=== PATIENT | female | born 1995 | race Caucasian/White ===

== ENCOUNTER 2021-01-25 06:13 | Inpatient (IN) ==
[2021-01-25] MEDS ORDERED: SODIUM CHLORIDE 0.9% 1000ML 1,000 ML IV ONE (06:43)
--- NOTE | 2021-01-25 06:50 | Emergency Department Note ---
History of Present Illness General Chief complaint: Mental Health Evaluation Stated complaint: SHAKY,DIZZY,LIGHT HEADED Time Seen by Provider: 01/25/21 06:30 Source: patient and family ( who is at the bedside) Mode of arrival: ambulatory Limitations: no limitations History of Present Illness Maximum Pain Intensity: 0 This patient comes in after taking an intentional overdose. She says she took 2 overdoses 1 at 1 PM and 1 at 8 PM yesterday. She says she took the Lexapro and Prozac which were both prescribed to her. She says she took approximately a gram total and at 1 PM took 300 mg and a 30 she took the rest. She denies any coingestions, specifically denies aspirin or Tylenol or drugs or alcohol. She did not vomit. She said " I just do not want to live anymore". And she admits that it was a suicidal attempt. She is try to take sleeping pills in the past she tells me as well. She has had the Covid vaccine. No recent illness. Specifically no fever chills cough or shortness of breath. She says she is slightly dizzy and lightheaded. No chest pain. No nausea. Denies . Home Medications Medication Instructions Recorded Confirmed Type escitalopram oxalate 20 mg tablet 20 mg PO DAILY 01/25/21 01/25/21 History (Lexapro) Past Med/Surg History Social History Smoking Status: Never smoker Preferred Language: Kazakh Feels Safe at Home: Yes Immunizations: Past medical historydepression. She gets her medications online from [employer]. Denies diabetes Social historyshe works at [employer]. She is and lives locally in [facility]. Review of Systems A total of 10 systems reviewed and were otherwise negative Physical Exam Vital Signs Vital Signs - 24 hr 01/25/21 06:17 01/25/21 07:30 01/25/21 08:00 Temperature 36.7 C Temperature Source Temporal Artery Scan Pulse Rate 114 H 77 79 Respiratory Rate 16 17 19 Blood Pressure 121/87 Blood Pressure Mean 98 Pulse Oximetry 98 Oxygen Delivery Method Room Air Sepsis Recent Fever Within 48 Hours No Sepsis New/Unexplained Change in Mental Status No Sepsis Action Taken by Nursing No Action Required 01/25/21 08:30 01/25/21 09:00 01/25/21 09:30 Temperature Temperature Source Pulse Rate 77 77 75 Respiratory Rate 18 18 21 Blood Pressure Blood Pressure Mean Pulse Oximetry Oxygen Delivery Method Sepsis Recent Fever Within 48 Hours Sepsis New/Unexplained Change in Mental Status Sepsis Action Taken by Nursing 01/25/21 10:03 01/25/21 10:30 01/25/21 11:00 Temperature Temperature Source Pulse Rate 107 H 79 81 Respiratory Rate 18 21 21 Blood Pressure Blood Pressure Mean Pulse Oximetry Oxygen Delivery Method Sepsis Recent Fever Within 48 Hours Sepsis New/Unexplained Change in Mental Status Sepsis Action Taken by Nursing 01/25/21 11:30 01/25/21 12:00 01/25/21 12:30 Temperature Temperature Source Pulse Rate 101 H 79 80 Respiratory Rate 14 19 22 Blood Pressure Blood Pressure Mean Pulse Oximetry Oxygen Delivery Method Sepsis Recent Fever Within 48 Hours Sepsis New/Unexplained Change in Mental Status Sepsis Action Taken by Nursing 01/25/21 13:00 01/25/21 13:30 01/25/21 14:00 Temperature Temperature Source Pulse Rate 74 78 79 Respiratory Rate 19 17 15 Blood Pressure 118/82 Blood Pressure Mean 94 Pulse Oximetry 98 97 97 Oxygen Delivery Method Sepsis Recent Fever Within 48 Hours Sepsis New/Unexplained Change in Mental Status Sepsis Action Taken by Nursing 01/25/21 14:30 Temperature Temperature Source Pulse Rate 69 Respiratory Rate 18 Blood Pressure Blood Pressure Mean Pulse Oximetry Oxygen Delivery Method Sepsis Recent Fever Within 48 Hours Sepsis New/Unexplained Change in Mental Status Sepsis Action Taken by Nursing General: Well developed well nourished young female who appears in no acute distress, breathing comfortably on room air. Normal speech HEENT: Normal cephalic atraumatic. Pupils are equal round and reactive to light. Extraocular movements are intact. Oropharynx is pink with moist mucous membranes. No swelling of the mouth lips or tongue. Neck: Supple with a midline trachea. No meningeal signs or stiffness, no JVD or bruits. No Stridor. Chest: Clear to auscultation bilaterally. No wheezes or rhonchi. No increased work of breathing. Heart: Regular rate and rhythm without murmurs or gallops. Abdomen: Soft nontender, nondistended without rebound guarding or rigidity. Extremities: No cyanosis clubbing or edema. No calf tenderness or assymetry Spine/Back. Non tender to palpation. No CVA tenderness Skin: Good turgor without rashes. Neurologic exam: Cranial nerves two through 12 are intact. Motor and sensation are intact and symmetrical throughout. Psych: Admits to suicidal ideations. She has normal affect and thought process Course Administered Medications Discontinued Medications Sodium Chloride (Nss 1000ml) 1,000 mls @ 999 mls/hr IV .Q1H1M ONE Stop: 01/25/21 07:43 Last Infusion: 01/25/21 08:17 Dose: 0 mls/hr Documented by: [id number] Admin: 01/25/21 07:14 Dose: 999 mls/hr Documented by: [id number] Magnesium Sulfate/Dextrose (Magnesium Sulfate / D5w) 1 gm in 100 mls @ 100 mls/hr IV NOW STA Stop: 01/25/21 08:00 Last Infusion: 01/25/21 08:17 Dose: 0 mls/hr Documented by: [id number] Admin: 01/25/21 07:18 Dose: 100 mls/hr Documented by: [id number] Potassium Chloride (Potassium Chloride 10 Meq Tabcr) 40 meq PO NOW STA Stop: 01/25/21 08:10 Last Admin: 01/25/21 08:17 Dose: 40 meq Documented by: [id number] Medical Decision Making Differential Diagnosis Depression, anxiety, overdose, toxicologic, metabolic, infectious, covid Medical Records Attestation: I reviewed the patient's medical records. Home Medications Current Medication List: was personally reviewed by me Laboratory Data Attestation: I reviewed the patient's lab results. Result diagrams: 01/25/21 07:07 01/25/21 07:07 Lab Results 01/25/21 01/25/21 01/25/21 Range/Units 06:29 06:29 07:07 WBC 6.21 (4.8-10.8) K/uL RBC 3.97 L (4.2-5.4) M/uL Hgb 12.1 (12.0-16.0) g/dL Hct 35.5 L (37-47) % MCV 89.4 (80-100) fL MCH 30.5 (25-34) pg MCHC 34.1 (32-36) g/dL RDW Std Deviation 40.5 (36.4-46.3) fL RDW Coeff of Vandana 12.5 (11.5-14.5) % Plt Count 240 (130-400) K/uL MPV 9.2 (7.4-10.4) fL Immature Gran % (Auto) 0.2 % Neut % (Auto) 66.1 % Lymph % (Auto) 23.0 % Graves % (Auto) 9.3 % Eos % (Auto) 1.1 % Baso % (Auto) 0.3 % Neut # (Auto) 4.10 (1.4-6.5) K/uL Lymph # (Auto) 1.43 (1.2-3.4) K/uL Graves # (Auto) 0.58 (0.11-0.59) K/uL Eos # (Auto) 0.07 (0-0.5) K/uL Baso # (Auto) 0.02 (0-0.2) K/uL Immature Gran # (Auto) 0.01 (0.00-0.02) K/uL PT (9.0-12.0) Seconds INR (0.9-1.1) APTT (21.0-31.0) Seconds PTT Ratio Sodium (136-145) mmol/L Potassium (3.5-5.1) mmol/L Chloride (98-107) mmol/L Carbon Dioxide (21-32) mmol/L Anion Gap (3-11) BUN (7-18) mg/dl Creatinine (0.6-1.2) mg/dl Est Cr Clr Drug Dosing ml/min Est GFR ( Amer) ml/min Est GFR (Non-Af Amer) ml/min BUN/Creatinine Ratio (10-20) Glucose (70-99) mg/dl Calcium (8.5-10.1) mg/dl Magnesium (1.8-2.4) mg/dl Total Bilirubin (0.2-1) mg/dl AST (15-37) U/L ALT (12-78) U/L Alkaline Phosphatase (45-117) U/L Total Protein (6.4-8.2) gm/dl Albumin (3.4-5.0) gm/dl Globulin (2.5-4.0) gm/dl Albumin/Globulin Ratio (0.9-2) TSH (0.300-4.500) uIu/ml HCG, Qual (Negative) Urine Color Yellow Urine Appearance Clear (Clear) Urine pH 6.5 (4.5-7.5) Ur Specific [place] 1.030 (1.000-1.030) Urine Protein Negative (Negative) Urine Glucose (UA) Negative (Negative) Urine Ketones Negative (Negative) Urine Blood Negative (Negative) Urine Nitrite Negative (Negative) Urine Bilirubin Negative (Negative) Urine Urobilinogen Negative (Negative) Ur Leukocyte Esterase Negative (Negative) Salicylates (2.8-20) mg/dl Urine Opiates Screen Neg (Neg) Ur Methadone, Qual Neg (Neg) Acetaminophen (10-30) ug/ml Urine Barbiturates Neg (Neg) Ur Phencyclidine (PCP) Neg (Neg) U Amphetamin/Meth Scrn Neg (Neg) MDMA (Ecstasy) Screen Neg (Neg) U Benzodiazepines Scrn Neg (Neg) Ur Cocaine Metabolite Neg (Neg) U Marijuana (THC) Screen Neg (Neg) Ethyl Alcohol mg/dL (0-3) mg/dl COVID-19 Eval Order SARS-CoV-2 (PCR) (Negative) 01/25/21 01/25/21 01/25/21 Range/Units 07:07 07:07 07:07 WBC (4.8-10.8) K/uL RBC (4.2-5.4) M/uL Hgb (12.0-16.0) g/dL Hct (37-47) % MCV (80-100) fL MCH (25-34) pg MCHC (32-36) g/dL RDW Std Deviation (36.4-46.3) fL RDW Coeff of Vandana (11.5-14.5) % Plt Count (130-400) K/uL MPV (7.4-10.4) fL Immature Gran % (Auto) % Neut % (Auto) % Lymph % (Auto) % Graves % (Auto) % Eos % (Auto) % Baso % (Auto) % Neut # (Auto) (1.4-6.5) K/uL Lymph # (Auto) (1.2-3.4) K/uL Graves # (Auto) (0.11-0.59) K/uL Eos # (Auto) (0-0.5) K/uL Baso # (Auto) (0-0.2) K/uL Immature Gran # (Auto) (0.00-0.02) K/uL PT (9.0-12.0) Seconds INR (0.9-1.1) APTT (21.0-31.0) Seconds PTT Ratio Sodium 136 (136-145) mmol/L Potassium 3.4 L (3.5-5.1) mmol/L Chloride 109 H (98-107) mmol/L Carbon Dioxide 27 (21-32) mmol/L Anion Gap 0 L (3-11) BUN 8 (7-18) mg/dl Creatinine 0.68 (0.6-1.2) mg/dl Est Cr Clr Drug Dosing 106.7 ml/min Est GFR ( Amer) 141.9 ml/min Est GFR (Non-Af Amer) 122.4 ml/min BUN/Creatinine Ratio 11.7 (10-20) Glucose 90 (70-99) mg/dl Calcium 8.4 L (8.5-10.1) mg/dl Magnesium 2.1 (1.8-2.4) mg/dl Total Bilirubin 0.6 (0.2-1) mg/dl AST 16 (15-37) U/L ALT 18 (12-78) U/L Alkaline Phosphatase 84 (45-117) U/L Total Protein 7.1 (6.4-8.2) gm/dl Albumin 3.7 (3.4-5.0) gm/dl Globulin 3.4 (2.5-4.0) gm/dl Albumin/Globulin Ratio 1.1 (0.9-2) TSH 3.780 (0.300-4.500) uIu/ml HCG, Qual (Negative) Urine Color Urine Appearance (Clear) Urine pH (4.5-7.5) Ur Specific [place] (1.000-1.030) Urine Protein (Negative) Urine Glucose (UA) (Negative) Urine Ketones (Negative) Urine Blood (Negative) Urine Nitrite (Negative) Urine Bilirubin (Negative) Urine Urobilinogen (Negative) Ur Leukocyte Esterase (Negative) Salicylates < 1.7 L (2.8-20) mg/dl Urine Opiates Screen (Neg) Ur Methadone, Qual (Neg) Acetaminophen 7 L (10-30) ug/ml Urine Barbiturates (Neg) Ur Phencyclidine (PCP) (Neg) U Amphetamin/Meth Scrn (Neg) MDMA (Ecstasy) Screen (Neg) U Benzodiazepines Scrn (Neg) Ur Cocaine Metabolite (Neg) U Marijuana (THC) Screen (Neg) Ethyl Alcohol mg/dL < 3.0 (0-3) mg/dl COVID-19 Eval Order SARS-CoV-2 (PCR) (Negative) 01/25/21 01/25/21 01/25/21 Range/Units 07:07 07:07 07:32 WBC (4.8-10.8) K/uL RBC (4.2-5.4) M/uL Hgb (12.0-16.0) g/dL Hct (37-47) % MCV (80-100) fL MCH (25-34) pg MCHC (32-36) g/dL RDW Std Deviation (36.4-46.3) fL RDW Coeff of Vandana (11.5-14.5) % Plt Count (130-400) K/uL MPV (7.4-10.4) fL Immature Gran % (Auto) % Neut % (Auto) % Lymph % (Auto) % Graves % (Auto) % Eos % (Auto) % Baso % (Auto) % Neut # (Auto) (1.4-6.5) K/uL Lymph # (Auto) (1.2-3.4) K/uL Graves # (Auto) (0.11-0.59) K/uL Eos # (Auto) (0-0.5) K/uL Baso # (Auto) (0-0.2) K/uL Immature Gran # (Auto) (0.00-0.02) K/uL PT 11.2 (9.0-12.0) Seconds INR 1.1 (0.9-1.1) APTT 27.5 (21.0-31.0) Seconds PTT Ratio 1.0 Sodium (136-145) mmol/L Potassium (3.5-5.1) mmol/L Chloride (98-107) mmol/L Carbon Dioxide (21-32) mmol/L Anion Gap (3-11) BUN (7-18) mg/dl Creatinine (0.6-1.2) mg/dl Est Cr Clr Drug Dosing ml/min Est GFR ( Amer) ml/min Est GFR (Non-Af Amer) ml/min BUN/Creatinine Ratio (10-20) Glucose (70-99) mg/dl Calcium (8.5-10.1) mg/dl Magnesium (1.8-2.4) mg/dl Total Bilirubin (0.2-1) mg/dl AST (15-37) U/L ALT (12-78) U/L Alkaline Phosphatase (45-117) U/L Total Protein (6.4-8.2) gm/dl Albumin (3.4-5.0) gm/dl Globulin (2.5-4.0) gm/dl Albumin/Globulin Ratio (0.9-2) TSH (0.300-4.500) uIu/ml HCG, Qual Negative (Negative) Urine Color Urine Appearance (Clear) Urine pH (4.5-7.5) Ur Specific [place] (1.000-1.030) Urine Protein (Negative) Urine Glucose (UA) (Negative) Urine Ketones (Negative) Urine Blood (Negative) Urine Nitrite (Negative) Urine Bilirubin (Negative) Urine Urobilinogen (Negative) Ur Leukocyte Esterase (Negative) Salicylates (2.8-20) mg/dl Urine Opiates Screen (Neg) Ur Methadone, Qual (Neg) Acetaminophen (10-30) ug/ml Urine Barbiturates (Neg) Ur Phencyclidine (PCP) (Neg) U Amphetamin/Meth Scrn (Neg) MDMA (Ecstasy) Screen (Neg) U Benzodiazepines Scrn (Neg) Ur Cocaine Metabolite (Neg) U Marijuana (THC) Screen (Neg) Ethyl Alcohol mg/dL (0-3) mg/dl COVID-19 Eval Order Covid19 at [facility] SARS-CoV-2 (PCR) (Negative) 01/25/21 Range/Units 07:32 WBC (4.8-10.8) K/uL RBC (4.2-5.4) M/uL Hgb (12.0-16.0) g/dL Hct (37-47) % MCV (80-100) fL MCH (25-34) pg MCHC (32-36) g/dL RDW Std Deviation (36.4-46.3) fL RDW Coeff of Vandana (11.5-14.5) % Plt Count (130-400) K/uL MPV (7.4-10.4) fL Immature Gran % (Auto) % Neut % (Auto) % Lymph % (Auto) % Graves % (Auto) % Eos % (Auto) % Baso % (Auto) % Neut # (Auto) (1.4-6.5) K/uL Lymph # (Auto) (1.2-3.4) K/uL Graves # (Auto) (0.11-0.59) K/uL Eos # (Auto) (0-0.5) K/uL Baso # (Auto) (0-0.2) K/uL Immature Gran # (Auto) (0.00-0.02) K/uL PT (9.0-12.0) Seconds INR (0.9-1.1) APTT (21.0-31.0) Seconds PTT Ratio Sodium (136-145) mmol/L Potassium (3.5-5.1) mmol/L Chloride (98-107) mmol/L Carbon Dioxide (21-32) mmol/L Anion Gap (3-11) BUN (7-18) mg/dl Creatinine (0.6-1.2) mg/dl Est Cr Clr Drug Dosing ml/min Est GFR ( Amer) ml/min Est GFR (Non-Af Amer) ml/min BUN/Creatinine Ratio (10-20) Glucose (70-99) mg/dl Calcium (8.5-10.1) mg/dl Magnesium (1.8-2.4) mg/dl Total Bilirubin (0.2-1) mg/dl AST (15-37) U/L ALT (12-78) U/L Alkaline Phosphatase (45-117) U/L Total Protein (6.4-8.2) gm/dl Albumin (3.4-5.0) gm/dl Globulin (2.5-4.0) gm/dl Albumin/Globulin Ratio (0.9-2) TSH (0.300-4.500) uIu/ml HCG, Qual (Negative) Urine Color Urine Appearance (Clear) Urine pH (4.5-7.5) Ur Specific [place] (1.000-1.030) Urine Protein (Negative) Urine Glucose (UA) (Negative) Urine Ketones (Negative) Urine Blood (Negative) Urine Nitrite (Negative) Urine Bilirubin (Negative) Urine Urobilinogen (Negative) Ur Leukocyte Esterase (Negative) Salicylates (2.8-20) mg/dl Urine Opiates Screen (Neg) Ur Methadone, Qual (Neg) Acetaminophen (10-30) ug/ml Urine Barbiturates (Neg) Ur Phencyclidine (PCP) (Neg) U Amphetamin/Meth Scrn (Neg) MDMA (Ecstasy) Screen (Neg) U Benzodiazepines Scrn (Neg) Ur Cocaine Metabolite (Neg) U Marijuana (THC) Screen (Neg) Ethyl Alcohol mg/dL (0-3) mg/dl COVID-19 Eval Order SARS-CoV-2 (PCR) NEGATIVE (Negative) ECG Data Attestation: I personally reviewed and interpreted this ECG as follows: Indication: + toxicologic Rate (beats per minute): 94 Rhythm: + normal sinus ECG Intervals/blocks: + Incomplete right bundle branch block and + Prolonged QT (PJn=261) ECG [place]: + Normal ECG ST segments: + Normal ST segments ECG Findings: + Other (Nonspecific T wave abnormal); no PACs or no PVCs Comparison ECG Date: no prior available Additional Comments: EKG #2normal sinus rhythm nonspecific T wave abnormality prolonged QT at 541. MDM Narrative This patient comes in as described above. She took an intentional overdose. Its been over 10 hours since her last pills. IV access was established and she was hydrated with an a IV normal saline bolus and placed on a groundwater monitoring technician. Multiple blood testing was obtained as well as urinalysis. IV access was established and she was hydrated with a IV normal saline bolus and placed on a groundwater monitoring technician. Multiple blood testing was obtained as well as urinalysis. EKG was also obtained. I did talk to Rajwinder at the [facility] who agreed with the plan and recommended that we do the work-up including the EKG and blood work and call them back later. Her EKG shows that she is no longer tachycardic as she was in triage with a rate of 94 however her QTC is mildly pr olonged at 532, given this I did order 1 g of magnesium IV. She was placed on a monitor. The patient remained stable she still says she is dizzy having arrhythmias. Her magnesium was 2.1. Potassium was low at 3.4 in which she was repleted with 40 mEq p.o. The rest of her labs look unremarkable. I did discuss the case further with Corbin at [facility] after I got the second EKG and her QTC is still prolonged at 541. We do not have a baseline for comparison. He does recommend observing her in the hospital for 24 hours and repeating EKG and magnesium level at 12 and to keep the magnesium greater than 2. Continuous cardiac monitoring: Given the patient's overdose an order was placed in EMR for continuous cardiac monitoring. The patient was noted to be in normal sinus with a rate of 80 Impression & Plan Overdose, Depression, Prolonged Q-T interval on ECG, Suicidal ideations Discharge Plan Visit Data Chief Complaint: Mental Health Evaluation Stated Complaint: SHAKY,DIZZY,LIGHT HEADED ED Provider: Wayne Sorto Discharge Problem: Overdose, Depression, Prolonged Q-T interval on ECG, Suicidal ideations Forms Stand Alone Forms: [facility] [employer], Suicide Prevention Resources Prescriptions Prescriptions: No Action escitalopram oxalate [Lexapro] 20 mg Tablet 20 mg PO DAILY RF: 0 Referrals Referrals: PCP,NO [Primary Care Provider] - Discharge Problem: Overdose Qualifiers: Encounter type: sequela Injury intent: intentional self-harm Qualified Code(s): T50.902S - Poisoning by unspecified drugs, medicaments and biological substances, intentional self-harm, sequela Depression Qualifiers: Depression Type: unspecified Qualified Code(s): F32.9 - Major depressive disorder, single episode, unspecified
[2021-01-25] MEDS ORDERED: MAGNESIUM SULFATE / D5W 1 GM/100 ML BAG IV STA (07:01)
[2021-01-25 07:15] LABS: Amphetamines+Metham, Urine Neg (Neg); Barbiturates, Urine Neg (Neg); Benzodiazepine, Urine Neg (Neg); Cocaine, Urine Neg (Neg); MDMA (Ecstacy), Urine Neg (Neg); Methadone, Urine Neg (Neg); Opiate, Urine Neg (Neg); Phencyclidine, Urine Neg (Neg)
[2021-01-25 07:17] LABS: Appearance Urine Clear (Clear); Bilirubin Urine Negative (Negative); Blood Urine Negative (Negative); Color Urine Yellow; Glucose Urine UA Negative (Negative); Ketones Urine Negative (Negative); Leukocyte Esterase Urine Negative (Negative); Nitrite Urine Negative (Negative); Protein Urine Negative (Negative); Urobilinogen Urine Negative (Negative); pH Urine 6.5 (4.5-7.5)
[2021-01-25 07:19] LABS: Basophils # (auto) 0.02 K/uL (0-0.2); Basophils % (auto) 0.3 %; Eosinophils # (auto) 0.07 K/uL (0-0.5); Eosinophils % (auto) 1.1 %; Hematocrit (blood only) 35.5 % (37-47); Hemoglobin 12.1 g/dL (12.0-16.0); Immature Granulocytes # (auto) 0.01 K/uL (0.00-0.02); Immature Granulocytes % (auto) 0.2 %; Lymphocytes # (auto) 1.43 K/uL (1.2-3.4); Mean Corpuscular Hemoglobin 30.5 pg (25-34); Mean Corpuscular Hgb Conc 34.1 g/dL (32-36); Mean Corpuscular Volume 89.4 fL (80-100); Mean Platelet Volume 9.2 fL (7.4-10.4); Monocytes # (auto) 0.58 K/uL (0.11-0.59); Monocytes % (auto) 9.3 %; Neutrophils % (auto) 66.1 %; Platelet Count 240 K/uL (130-400); RDW Coefficient of Variation 12.5 % (11.5-14.5); RDW Standard Deviation 40.5 fL (36.4-46.3); Red Blood Count 3.97 M/uL (4.2-5.4); White Blood Count 6.21 K/uL (4.8-10.8)
[2021-01-25 07:32] LABS: INR 1.1 (0.9-1.1); Partial Thromboplastin Time 27.5 Seconds (21.0-31.0); Prothrombin Time 11.2 Seconds (9.0-12.0)
[2021-01-25 07:42] LABS: Albumin Level 3.7 gm/dl (3.4-5.0); BUN Creatinine Ratio 11.7 (10-20); Calcium 8.4 mg/dl (8.5-10.1); Creatinine Clr Calc Pharmacy 106.7 ml/min; Est GFR (African American) 141.9 ml/min; Est GFR (Non-African American) 122.4 ml/min; Magnesium 2.1 mg/dl (1.8-2.4); Potassium 3.4 mmol/L (3.5-5.1)
[2021-01-25 07:46] LABS: Pregnancy Test, Serum Negative (Negative)
[2021-01-25 07:48] LABS: Acetaminophen 7 ug/ml (10-30); Salicylate < 1.7 mg/dl (2.8-20)
[2021-01-25 07:53] LABS: Albumin Globulin Ratio 1.1 (0.9-2); Bilirubin,Total 0.6 mg/dl (0.2-1); Globulin 3.4 gm/dl (2.5-4.0); Thyroid Stimulating Hormone 3.78 uIu/ml (0.300-4.500); Total Protein 7.1 gm/dl (6.4-8.2)
[2021-01-25] MEDS ORDERED: POTASSIUM CHLORIDE 10 MEQ TABCR PO STA (08:09)
--- NOTE | 2021-01-25 09:31 | History & Physical Report ---
Date of Service January 25, 2021 Assessment & Plan (1) Overdose: (2) Depression: (3) Suicidal ideations: Plan: - Admit to med surg with tele - Will need psych consultation for possible inpatient stay after cardiac monitoring for 24 hours - Tox screen is negative to illicit substances, alcohol negative - Pt admits to overdose on lexapro and prozac as per HPI - possible that this was due to recent increased dose of lexapro? Hold [employer] lexapro. - Pt does not admit to any social or circumstantial triggers during my visit. (4) Prolonged Q-T interval on ECG: Plan: - noted on ekg to have QTC of 541 also an incomplete RBBB, no arrhythmias on monitoring since being in the hospital, follow with Q12H EKGs - Follow BMP Q12h - Mag 1 g IV given in the ER, follow - Avoid QTC prolonging medications, ie consider weaning off prozac as this does have QTC prolonging adverse effects. (5) Hypokalemia: Plan: - Replaced with 40 meq po in ER, monitor bmp DVT ppx: teds, scds CODE: Full Dispo: From home, likely to remain in the hospital x2 days, CM to assist with discharge to psychiatric unit once medically cleared. History of Present Illness Primary Care Provider: NO PCP This is a 25-year-old Fe male with PMHx of depression, suicidal ideation, overdose and prolonged QTc interval on ECG. Patient reports that she was in her normal state of health yesterday and denies any triggers that preemptively caused her to want to take Lexapro and Prozac as an overdose. Admits to feeling depressed and with worsened mood recently. Reports following with online psychiatry through virtual visits at [facility]. and last saw one of their psychiatrist several months ago. She gets refills of her medications on a monthly basis. Initially she was trialed on Prozac however it made her feel dizzy so they stopped this medication. She was then transition to Lexapro 10 mg daily and at a recent visit, the dose was increased to 20 mg. She had leftover Prozac as well as Lexapro 10 mg tablets at home. In total she reports taking at 1 g of each type of medication, so possible that she took about 100 prozac tablets and 100 lexapro tablets, some at 1530 yesterday, and then the rest around 1999. She cannot confirm the exact amount of medications she had taken. Suicide attempt was done at home, and her was there but he didn't know, as he sleeps in a game room, and she sleeps in the bedroom. About 3 years ago she attempted suicide by overdosing on sleeping pills, but self-induced vomiting and did not present to the hospital. Social Hx; She enjoys her job, as she works at [employer]. to her who lives at home with her, no children, denies smoking or drinking alcohol. Pt is from [place], moved here after she her . Pt has never been incarcerated. Family Hx: She denies any family hx of psychiatric disorders that she is aware of. Surgical Hx: wisdom teeth removed Home Medications Medication Instructions Recorded Confirmed Type Lexapro 20 mg PO DAILY 01/25/21 01/25/21 History Past Med/Surg History Social History Smoking Status: Never smoker Preferred Language: Hungarian Feels Safe at Home: Yes Review of Systems Review of Systems: Constitutional: No fever, sweats or chills, + headache Eyes: No diplopia, no worsening or blurred vision ENT: normal hearing, no trouble swallowing Respiratory: No cough, sputum, dyspnea at rest or on exertion Cardiovascular: No chest pain, tightness or palpitations Abdomen: No pain, nausea, vomiting, diarrhea or constipation Musculoskeletal: No joint pain, calf pain, swelling Neurologic: No weakness, numbness/tingling, or balance problems Psychiatric: + depression, + suicidal ideation, denies homicidal ideation Skin: No rash or itch Physical Exam Physical Exam: General: awake, alert, no apparent distress, + thin Head: Normocephalic, atraumatic ENT: PERRL, EOMI, no pharyngeal exudate, mucous membranes moist Chest: Clear to auscultation, on room air, no adventitious breath sounds Cardiac: Regular rate and rhythm, no murmur, no JVD, normal peripheral pulses, good capillary refill Abdominal: NABS x 4 quadrants, soft, nondistended, nontender to palpation, no rebound or guarding Extremities: Normal inspection, no peripheral edema or erythema, calfs nontender to palpation Psych: Depressed mood, flat affect, poor eye contact Neuro: AAO x 3, strength intact bilaterally and rated 5/5, no motor deficits, speech is clear, no peripheral sensory deficits Results & Data Results & Data ([facility]) Vital Signs (Past 12 Hours) Vital Signs Temp Pulse Resp BP Pulse Ox 01/25/21 06:17 36.7 C 114 H 16 121/87 98 ECG Additional Comments: 25-JAN-2021 08:35:40 [facility]-EDSTAT ROUTINE RETRIEVAL Normal sinus rhythm Possible Left atrial enlargement Nonspecific T wave abnormality Prolonged QT Abnormal ECG When compared with ECG of 25-JAN-2021 06:46, (unconfirmed) No significant change was found 25mm/s 10mm/mV 150Hz 9.0.9 12SL 241 CAPRICE: 16 Referred by: REFERRED SELF Unconfirmed Vent. rate 81 BPM VA interval 132 ms QRS duration 90 ms QT/QTc 466/541 ms Code Status & VTE Plan Code Status Full code (1) Depression Depression Type: unspecified Qualified Code(s): F32.9 - Major depressive disorder, single episode, unspecified (2) Overdose Encounter type: sequela Injury intent: intentional self-harm Qualified Code(s): T50.902S - Poisoning by unspecified drugs, medicaments and biological substances, intentional self-harm, sequela
--- NOTE | 2021-01-25 13:01 | Electrocardiogram Report ---
Test Reason : Blood Pressure : / mmHG Vent. Rate : 094 BPM Atrial Rate : 094 BPM P-R Int : 128 ms QRS Dur : 092 ms QT Int : 426 ms P-R-T Axes : 076 040 054 degrees QTc Int : 532 ms Normal sinus rhythm Incomplete right bundle branch block Diffuse Minor Nonspecific T wave abnormality Prolonged QT Abnormal ECG No previous ECGs available Confirmed by Jose Raul Cheney ([id number]) on 01/25/2021 1:01:29 PM Referred By: REFERRED SELF Confirmed By:Jose Raul Cheney
[2021-01-25] MEDS ORDERED: ONDANSETRON INJ 2 MG/ML 2 ML VIAL IV PRN (18:29)
[2021-01-25] MEDS: SODIUM CHLORIDE 0.9% 1000ML 1,000 ML IV SCH (18:45)
[2021-01-25 20:49] LABS: BUN Creatinine Ratio 9.6 (10-20); Calcium 8.3 mg/dl (8.5-10.1); Creatinine Clr Calc Pharmacy 111.5 ml/min; Est GFR (Non-African American) 124.3 ml/min; Potassium 3.9 mmol/L (3.5-5.1)
[2021-01-26] MEDS: SODIUM CHLORIDE 0.9% 1000ML 1,000 ML IV SCH ×3 (02:10→18:30)
--- NOTE | 2021-01-26 08:51 | Electrocardiogram Report ---
Test Reason : Blood Pressure : / mmHG Vent. Rate : 079 BPM Atrial Rate : 079 BPM P-R Int : 126 ms QRS Dur : 094 ms QT Int : 416 ms P-R-T Axes : 082 038 044 degrees QTc Int : 477 ms Normal sinus rhythm Diffuse Minor Nonspecific T wave abnormality Prolonged QT Abnormal ECG When compared with ECG of 25-JAN-2021 08:35, QT has shortened Confirmed by Jose Raul Cheney ([id number]) on 01/26/2021 8:51:43 AM Referred By: REFERRED SELF Confirmed By:Jose Raul Cheney
--- NOTE | 2021-01-26 08:54 | Electrocardiogram Report ---
Test Reason : Blood Pressure : / mmHG Vent. Rate : 065 BPM Atrial Rate : 065 BPM P-R Int : 126 ms QRS Dur : 088 ms QT Int : 492 ms P-R-T Axes : 081 056 077 degrees QTc Int : 511 ms Normal sinus rhythm Diffuse Minor Nonspecific T wave abnormality Prolonged QT Abnormal ECG When compared with ECG of 25-JAN-2021 20:41, Nonspecific T wave abnormality has replaced inverted T waves in Anterior leads Confirmed by Jose Raul Cheney ([id number]) on 01/26/2021 8:54:00 AM Referred By: REFERRED SELF Confirmed By:Jose Raul Cheney
[2021-01-26 08:56] LABS: Albumin Level 3.5 gm/dl (3.4-5.0); BUN Creatinine Ratio 9.6 (10-20); Calcium 8.4 mg/dl (8.5-10.1); Creatinine Clr Calc Pharmacy 120.7 ml/min; Est GFR (African American) 147.9 ml/min; Est GFR (Non-African American) 127.6 ml/min; Hematocrit (blood only) 35.1 % (37-47); Hemoglobin 11.8 g/dL (12.0-16.0); Magnesium 2.2 mg/dl (1.8-2.4); Mean Corpuscular Hemoglobin 30.6 pg (25-34); Mean Corpuscular Hgb Conc 33.6 g/dL (32-36); Mean Corpuscular Volume 91.2 fL (80-100); Mean Platelet Volume 9.6 fL (7.4-10.4); Platelet Count 237 K/uL (130-400); RDW Coefficient of Variation 12.7 % (11.5-14.5); RDW Standard Deviation 42.4 fL (36.4-46.3); Red Blood Count 3.85 M/uL (4.2-5.4); White Blood Count 4.91 K/uL (4.8-10.8)
[2021-01-26 08:59] LABS: Bilirubin,Total 0.4 mg/dl (0.2-1); Globulin 3.4 gm/dl (2.5-4.0); Phosphorus 2.6 mg/dl (2.5-4.9); Total Protein 6.9 gm/dl (6.4-8.2)
[2021-01-26] MEDS ORDERED: ASPIRIN 81 MG ECTAB PO ONE (12:30)
[2021-01-26] MEDS: ACETAMINOPHEN 325 MG TAB PO PRN ×2 (12:46→18:30)
--- NOTE | 2021-01-26 15:32 | Psychiatric Consultation ---
Date of Consultation January 26, 2021 Impression / Recommendations Impression 25-year-old female with psychiatric history of depression anxiety who presents following a suicide attempt via overdose. Patient will require inpatient hospitalization for purposes of safety, stabilization, medication management. (1) Major depressive disorder with current active episode: Patient will require inpatient psychiatric hospitalization once medically cleared. Psych History Identifying Data 25-year-old woman with recent suicide attempt via overdose. Currently recovering on medical floors due to prolonged QTC. Chief Complaint "I don't know what came over me". History of Present Illness HPI as per psychiatric liaison "Rounded on patient to complete initial assessment. Pt. sitting up in bed alert and oriented, affect flat. Answered questions appropriately. She reports that she has a history of depression, starting in high school. Past attempt was 2 years ago of OD with no inpatient mental health treatment. Denies any family history. She is prescribed medications through [facility], along with therapy through this site. She is prescribed Lexapro 20mg, and reports that she had taken an OD of an old script of Prozac and Lexapro. She estimates 1GM of medication was taken. She reports getting 2 weeks ago to her Aris who is her support system. She describes her stressors as "society" and how messed up the world is. She is currently employed at [employer]. Denies any Drug use, with occasional alcohol use. She did sign an PORSCHE for her . She currently has no PCP. " Upon evaluation, patient endorsed the above information is accurate. Stated that her depression goes back to her high school years, and she is to be consistently sought out help on [facility] for her depression. Patient unable to cite specific triggers or sources of her depression, just states life in general. When asked what her biggest stressor was patient said "waking up tomorrow" referring to the day following her overdose. Patient unable to cite any specific events or that they were's more stressful than others. Patient cites her menstrual period as main reason for mood dysregulation. She states that since having taken the overdose and having come to the hospital she feels much better, and is denying any current suicidal ideation. Patient denies any history of physical, sexual, emotional trauma. States that she had a good childhood growing up. States that she recently moved from [place] to [place] to be with her Aris. She was initially started on Prozac medication, but then discontinued due to feeling dizzy, then restarted on Lexapro medication with an increase the dosage. Patient states that she used her leftover prescriptions to overdose. She denies any drug use. Admits to occasional alcohol use but denies problematic drinking. She denies any psychotic, manic symptoms. Denies AVH, denies paranoia Home Medications Medication Instructions Recorded Confirmed Type escitalopram oxalate 20 mg tablet 20 mg PO DAILY 01/25/21 01/25/21 History (Lexapro) Personal History Beliefs That Will Affect Care: None Patient History Social History Smoking Status: Never smoker Hx Alcohol Use: Yes Hx Substance Use: No Preferred Language: Lebanese Communication Ability: Effective Beliefs That Will Affect Care: None Current Living Situation: Spouse Other Information That Helps Us Care for You: No Feels Safe at Home: Yes Safety Concerns: Feels Safe At This Time Assistive Devices: None Physical Exam Psychiatric: Orientation: alert and oriented x 3 Apperance: appropriately dressed and appeared stated age Eye Contact: good eye contact Motor Behavior: no abnormal motor movements Speech: normal rate/rhythm/volume of speech Affect: euthymic affect Affect is discongruent with mood Mood: + depressed mood and + anxious mood Thought Process: goal directed thought process Thought Content: reality based without delusions Recent suicide attempt via overdose Homicidal Thoughts: denies homicidal thoughts Hallucinations: no auditory hallucinations and no visual hallucinations Cognition: recent memory grossly intact Estimated Intelligence: average estimated intelligence Insight: + limited insight Judgement: + poor judgement Vital Signs (Past 24 Hours): Last Vital Signs Temp 37.0 C 01/26/21 12:09 Pulse 73 01/26/21 12:09 Resp 18 01/26/21 12:09 BP 107/74 01/26/21 12:09 Pulse Ox 97 01/26/21 12:09 Review of Systems All systems reviewed & are unremarkable except as noted in HPI & below Results & Data (PSY) Medications Administered Acetaminophen (Acetaminophen 325 Mg Tab) 650 mg PO Q4H PRN PRN Reason: Moderate Pain Stop: 02/24/21 18:28 Last Admin: 01/26/21 12:46 Dose: 650 mg Documented by: [id number] Sodium Chloride (Nss 1000ml) 1,000 mls @ 125 mls/hr IV .Q8H ERICA Stop: 02/24/21 18:28 Last Admin: 01/26/21 10:03 Dose: 125 mls/hr Documented by: [id number] Infusion: 01/26/21 10:03 Dose: 125 mls/hr Documented by: [id number] Admin: 01/26/21 02:10 Dose: 125 mls/hr Documented by: [id number] Infusion: 01/26/21 02:10 Dose: 125 mls/hr Documented by: [id number] Admin: 01/25/21 18:45 Dose: 125 mls/hr Documented by: [id number] Coding Level of Care Code 24660 [facility] Intl Hosp Care Lvl 2 Diagnoses Major depressive disorder with current active episode F32.9 Time Spent (min) 40
[2021-01-26 16:51] LABS: Magnesium 1.9 mg/dl (1.8-2.4)
--- NOTE | 2021-01-26 17:00 | Electrocardiogram Report ---
Test Reason : Blood Pressure : / mmHG Vent. Rate : 070 BPM Atrial Rate : 070 BPM P-R Int : 120 ms QRS Dur : 086 ms QT Int : 484 ms P-R-T Axes : 103 125 117 degrees QTc Int : 522 ms Suspect arm lead reversal, interpretation assumes no reversal Normal sinus rhythm Right axis deviation Diffuse Nonspecific T wave abnormality Prolonged QT Abnormal ECG When compared with ECG of 26-JAN-2021 08:10, No significant change Confirmed by Jose Raul Cheney ([id number]) on 01/26/2021 5:00:26 PM Referred By: REFERRED SELF Confirmed By:Jose Raul Cheney
--- NOTE | 2021-01-26 22:32 | Hospitalist Progress Note ---
Date of Service January 26, 2021 Assessment & Plan (1) Overdose: (2) Depression: (3) Suicidal ideations: Plan: Present on admission for suicidal attempt with drug overdose Patient admitted to overdose on lexapro and prozac Tox screen is negative to illicit substances, alcohol negative Poison control was contacted recommended to follow up EKG to monitor QTC Psych on board Continue one-to-one sitter Patient will need inpatient psych treatment once medically cleared (4) Prolonged Q-T interval on ECG: Plan: Noted on ekg to have QTC of 541 also an incomplete RBBB No arrhythmias on screen stretcher Continue avoiding QTC prolongation medication Continue serial EKG (5) Hypokalemia: Plan: Potassium 4 today Continue monitor BMP DVT ppx: teds, scds CODE: Full Dispo: Will need inpatient psych therapy once medically clear Admission and Anticipated Discharge Date Admission Date: January 25, 2021 Subjective Patient was seen and examined for follow-up of QTC after suicidal attempt with drug overdose Sitting in bed with no acute distress with one-to-one sitter Patient said that she feels fine and mood stable Denies any chest pain, palpitation, dizziness, shortness of breath. Review of Systems Review of Systems: All systems reviewed & are unremarkable except as noted in Subjective Physical Exam Physical Exam: General- No acute distress Head- atraumatic Eyes- PERRL, EOMI, ENT- oropharynx clear Neck- supple, no JVD Lungs- clear to auscultation Heart- regular rhythm; no murmur Abdomen- normal bowel sounds, soft, nontender Extremities- no calf tenderness Neuro- alert, oriented x 3; PERRL, EOMI; no facial palsy; no dysarthria Skin- warm & dry Results & Data Results & Data ([facility]) Vital Signs (Past 12 Hours) Vital Signs Temp Pulse Pulse Resp BP Pulse Ox 01/26/21 18:53 36.7 C 74 18 123/82 98 01/26/21 15:28 36.8 C 75 16 113/78 99 01/26/21 12:09 37.0 C 73 18 107/74 97 (1) Overdose Encounter type: sequela Injury intent: intentional self-harm Qualified Code(s): T50.902S - Poisoning by unspecified drugs, medicaments and biological substances, intentional self-harm, sequela (2) Depression Depression Type: unspecified Qualified Code(s): F32.9 - Major depressive disorder, single episode, unspecified
[2021-01-27] MEDS: SODIUM CHLORIDE 0.9% 1000ML 1,000 ML IV SCH (02:43)
[2021-01-27 07:18] LABS: Hematocrit (blood only) 37.7 % (37-47); Mean Corpuscular Hemoglobin 31.1 pg (25-34); Mean Corpuscular Hgb Conc 34.5 g/dL (32-36); Mean Corpuscular Volume 90.2 fL (80-100); Mean Platelet Volume 9.5 fL (7.4-10.4); Platelet Count 246 K/uL (130-400); RDW Coefficient of Variation 12.3 % (11.5-14.5); RDW Standard Deviation 40.7 fL (36.4-46.3); Red Blood Count 4.18 M/uL (4.2-5.4); White Blood Count 6.08 K/uL (4.8-10.8)
[2021-01-27 07:47] LABS: Albumin Level 3.7 gm/dl (3.4-5.0); Calcium 8.1 mg/dl (8.5-10.1); Creatinine Clr Calc Pharmacy 111.5 ml/min; Est GFR (Non-African American) 124.3 ml/min; Magnesium 1.5 mg/dl (1.8-2.4); Potassium 3.8 mmol/L (3.5-5.1)
[2021-01-27 07:49] LABS: Bilirubin,Total 0.4 mg/dl (0.2-1); Globulin 3.6 gm/dl (2.5-4.0); Total Protein 7.3 gm/dl (6.4-8.2)
[2021-01-27] MEDS: MAGNESIUM SULFATE / D5W 1 GM/100 ML BAG IV SCH ×2 (10:39→12:55)
[2021-01-27] MEDS ORDERED: POTASSIUM CHLORIDE CRTAB 20 MEQ TABCR PO STA ×2 (15:58→23:00)
[2021-01-27 17:32] LABS: Magnesium 2.4 mg/dl (1.8-2.4)
--- NOTE | 2021-01-27 22:28 | Hospitalist Progress Note ---
Date of Service January 27, 2021 Assessment & Plan (1) Overdose: (2) Depression: (3) Suicidal ideations: Plan: Present on admission for suicidal attempt with drug overdose Patient admitted to overdose on lexapro and prozac Tox screen is negative to illicit substances, alcohol negative Poison control was contacted recommended to follow up EKG to monitor QTC Psych on board Continue one-to-one sitter Patient will need inpatient psych treatment once medically cleared (4) Prolonged Q-T interval on ECG: Plan: Noted on ekg to have QTC of 541 also an incomplete RBBB No arrhythmias on cardiac monitor Continue avoiding QTC prolongation medication Most recent EKG with QTC 502 Case discussed with poison control and recommended to keep Mg above 2 and K above 4 Will repeat EKG (5) Hypokalemia: Plan: Potassium 4 today Continue monitor BMP DVT ppx: teds, scds CODE: Full Dispo: Will need inpatient psych therapy once medically clear Admission and Anticipated Discharge Date Admission Date: January 25, 2021 Subjective Patient was seen and examined for follow-up of QTC after suicidal attempt with drug overdose Sitting in bed with no acute distress with one-to-one sitter. Patient said that he feels fine Denies any chest pain, palpitation, dizziness, shortness of breath,hallucination and suicide thought Review of Systems Review of Systems: All systems reviewed & are unremarkable except as noted in Subjective Physical Exam Physical Exam: General- No acute distress Head- atraumatic Eyes- PERRL, EOMI, ENT- oropharynx clear Neck- supple, no JVD Lungs- clear to auscultation Heart- regular rhythm; no murmur Abdomen- normal bowel sounds, soft, nontender Extremities- no calf tenderness Neuro- alert, oriented x 3; PERRL, EOMI; no facial palsy; no dysarthria Skin- warm & dry Results & Data Results & Data ([facility]) Vital Signs (Past 12 Hours) Vital Signs Temp Pulse Pulse Resp BP BP Pulse Ox 01/27/21 20:01 36.6 C 68 18 120/81 99 01/27/21 15:22 36.7 C 80 16 111/73 98 01/27/21 15:18 84 01/27/21 11:08 36.9 C 72 16 106/71 97 (1) Overdose Encounter type: sequela Injury intent: intentional self-harm Qualified Code (s): T50.902S - Poisoning by unspecified drugs, medicaments and biological substances, intentional self-harm, sequela (2) Depression Depression Type: unspecified Qualified Code(s): F32.9 - Major depressive disorder, single episode, unspecified
[2021-01-28 06:24] LABS: Hematocrit (blood only) 40.7 % (37-47); Hemoglobin 13.5 g/dL (12.0-16.0); Mean Corpuscular Hemoglobin 30.3 pg (25-34); Mean Corpuscular Hgb Conc 33.2 g/dL (32-36); Mean Corpuscular Volume 91.3 fL (80-100); Mean Platelet Volume 9.6 fL (7.4-10.4); Platelet Count 280 K/uL (130-400); RDW Coefficient of Variation 12.4 % (11.5-14.5); RDW Standard Deviation 41.7 fL (36.4-46.3); Red Blood Count 4.46 M/uL (4.2-5.4); White Blood Count 7.26 K/uL (4.8-10.8)
--- NOTE | 2021-01-28 06:56 | Electrocardiogram Report ---
Test Reason : Blood Pressure : / mmHG Vent. Rate : 067 BPM Atrial Rate : 067 BPM P-R Int : 132 ms QRS Dur : 092 ms QT Int : 476 ms P-R-T Axes : 071 047 057 degrees QTc Int : 502 ms Normal sinus rhythm T wave abnormality, consider anterior ischemia Prolonged QT Abnormal ECG When compared with ECG of 26-JAN-2021 16:14, Limb lead reversal is no longer present Nonspecific T wave abnormality no longer evident in Lateral leads T wave inversion now evident in Anterior leads Confirmed by Delbert Mcmullen ([id number]) on 01/28/2021 6:55:46 AM Referred By: REFERRED SELF Confirmed By:Delbert Mcmullen
[2021-01-28 07:00] LABS: Albumin Level 3.8 gm/dl (3.4-5.0); BUN Creatinine Ratio 13.2 (10-20); Calcium 8.8 mg/dl (8.5-10.1); Est GFR (African American) 145.5 ml/min; Est GFR (Non-African American) 125.5 ml/min; Potassium 4.3 mmol/L (3.5-5.1)
[2021-01-28 07:03] LABS: Albumin Globulin Ratio 1.1 (0.9-2); Bilirubin,Total 0.4 mg/dl (0.2-1); Globulin 3.6 gm/dl (2.5-4.0); Total Protein 7.4 gm/dl (6.4-8.2)
--- NOTE | 2021-01-28 07:09 | Electrocardiogram Report ---
Test Reason : Blood Pressure : / mmHG Vent. Rate : 072 BPM Atrial Rate : 072 BPM P-R Int : 132 ms QRS Dur : 090 ms QT Int : 440 ms P-R-T Axes : 066 031 039 degrees QTc Int : 481 ms Normal sinus rhythm Nonspecific T wave abnormality Prolonged QT Abnormal ECG When compared with ECG of 26-JAN-2021 21:58, No significant change was found Confirmed by Delbert Mcmullen ([id number]) on 01/28/2021 7:08:58 AM Referred By: REFERRED SELF Confirmed By:Delbert Mcmullen
--- NOTE | 2021-01-28 10:59 | Hospitalist Progress Note ---
Date of Service January 28, 2021 Assessment & Plan (1) Overdose: (2) Depression: (3) Suicidal ideations: Plan: Present on admission for suicidal attempt with drug overdose Patient admitted to overdose on lexapro and prozac Tox screen is negative to illicit substances, alcohol negative Poison control was contacted recommended to follow up EKG to monitor QTC Psych on board Continue one-to-one sitter Patient will need inpatient psych treatment once medically cleared Case discussed with poison control again this morning that agreed pt can be medically clear Will transfer to mental health unit (4) Prolonged Q-T interval on ECG: Plan: Noted on ekg to have QTC of 541 also an incomplete RBBB No arrhythmias on awake overnight monitor Continue avoiding QTC prolongation medication Most recent EKG with QTC 502 Case discussed with poison control and recommended to keep Mg above 2 and K above 4 Most recent EKG with QTC 483 case discussed with cardiology and not too concern since QTC is trending down from 502 to 483 Poison control was contacted and not need to repeat additional EKG Will need to avoid QTC meds Pt is medically cleared to transfer to psych (5) Hypokalemia: Plan: Potassium 4 today Continue monitor BMP DVT ppx: teds, scds CODE: Full Dispo: Medically clear to transfer to mental health today Admission and Anticipated Discharge Date Admission Date: January 25, 2021 Subjective Patient was seen and examined for follow-up of QTC after suicidal attempt with drug overdose (prozac and lexapro) Sitting in bed with no acute distress with one-to-one sitter. Patient said that he feels fine Denies any chest pain, palpitation, dizziness, shortness of breath,hallucination and suicide thought Review of Systems Review of Systems: All systems reviewed & are unremarkable except as noted in Subjective Physical Exam Physical Exam: General- No acute distress Head- atraumatic Eyes- PERRL, EOMI, ENT- oropharynx clear Neck- supple, no JVD Lungs- clear to auscultation Heart- regular rhythm; no murmur Abdomen- normal bowel sounds, soft, nontender Extremities- no calf tenderness Neuro- alert, oriented x 3; PERRL, EOMI; no facial palsy; no dysarthria Skin- warm & dry Results & Data Results & Data ([facility]) Vital Signs (Past 12 Hours) Vital Signs Temp Pulse Pulse Resp BP Pulse Ox 01/28/21 08:00 74 01/28/21 07:19 36.7 C 72 16 108/72 98 01/28/21 03:42 36.6 C 68 18 118/78 98 01/27/21 23:01 36.6 C 74 18 107/70 98 (1) Depression Depression Type: unspecified Qualified Code(s): F32.9 - Major depressive disorder, single episode, unspecified (2) Overdose Encounter type: sequela Injury intent: intentional self-harm Qualified Code(s): T50.902S - Poisoning by unspecified drugs, medicaments and biological substances, intentional self-harm, sequela
--- NOTE | 2021-01-28 12:07 | Discharge Summary ---
Date of Service January 28, 2021 Admission HPI Per Admitting Provider This is a 25-year-old Fe male with PMHx of depression, suicidal ideation, overdose and prolonged QTc interval on ECG. Patient reports that she was in her normal state of health yesterday and denies any triggers that preemptively caused her to want to take Lexapro and Prozac as an overdose. Admits to feeling depressed and with worsened mood recently. Reports following with online psychiatry through virtual visits at [facility]. and last saw one of their psychiatrist several months ago. She gets refills of her medications on a monthly basis. Initially she was trialed on Prozac however it made her feel dizzy so they stopped this medication. She was then transition to Lexapro 10 mg daily and at a recent visit, the dose was increased to 20 mg. She had leftover Prozac as well as Lexapro 10 mg tablets at home. In total she reports taking at 1 g of each type of medication, so possible that she took about 100 prozac tablets and 100 lexapro tablets, some at 1530 yesterday, and then the rest around 1999. She cannot confirm the exact amount of medications she had taken. Suicide attempt was done at home, and her was there but he didn't know, as he sleeps in a game room, and she sleeps in the bedroom. About 3 years ago she attempted suicide by overdosing on sleeping pills, but self-induced vomiting and did not present to the hospital. Social Hx; She enjoys her job, as she works at [employer]. to her who lives at home with her, no children, denies smoking or drinking alcohol. Pt is from [place], moved here after she her . Pt has never been incarcerated. Family Hx: She denies any family hx of psychiatric disorders that she is aware of. Surgical Hx: wisdom teeth removed Admission Exam Per Admitting Provider General: awake, alert, no apparent distress, + thin Head: Normocephalic, atraumatic ENT: PERRL, EOMI, no pharyngeal exudate, mucous membranes moist Chest: Clear to auscultation, on room air, no adventitious breath sounds Cardiac: Regular rate and rhythm, no murmur, no JVD, normal peripheral pulses, good capillary refill Abdominal: NABS x 4 quadrants, soft, nondistended, nontender to palpation, no rebound or guarding Extremities: Normal inspection, no peripheral edema or erythema, calfs nontender to palpation Psych: Depressed mood, flat affect, poor eye contact Neuro: AAO x 3, strength intact bilaterally and rated 5/5, no motor deficits, speech is clear, no peripheral sensory deficits Principal Diagnosis (1) Overdose: (2) Depression: (3) Suicidal ideations: (4) Prolonged Q-T interval on ECG: (5) Hypokalemia: Discharge Exam General- No acute distress Head- atraumatic Eyes- PERRL, EOMI, ENT- oropharynx clear Neck- supple, no JVD Lungs- clear to auscultation Heart- regular rhythm; no murmur Abdomen- normal bowel sounds, soft, nontender Extremities- no calf tenderness Neuro- alert, oriented x 3; PERRL, EOMI; no facial palsy; no dysarthria Skin- warm & dry Discharge Data Consultations 01/25/21 09:12 ED Decision to Admit Stat 01/25/21 18:29 Consult Psychiatry Routine 01/25/21 18:38 Consult Behavioral Health Liaison Routine 01/25/21 22:14 Consult Behavioral Health Liaison Routine Hospital Course (1) Overdose: (2) Depression: (3) Suicidal ideations: Present on admission for suicidal attempt with drug overdose Patient admitted to overdose on lexapro and prozac Tox screen is negative to illicit substances, alcohol negative Poison control was contacted recommended to follow up EKG to monitor QTC Psych on board Continue one-to-one sitter Patient will need inpatient psych treatment once medically cleared Case discussed with poison control again this morning that agreed pt can be medically clear Will transfer to mental health unit (4) Prolonged Q-T interval on ECG: Noted on ekg to have QTC of 541 also an incomplete RBBB No arrhythmias on drawing box tender Continue avoiding QTC prolongation medication Most recent EKG with QTC 502 Case discussed with poison control and recommended to keep Mg above 2 and K above 4 Most recent EKG with QTC 483 case discussed with cardiology and not too concern since QTC is trending down from 502 to 483 Poison control was contacted and not need to repeat additional EKG Will need to avoid QTC meds Pt is medically cleared to transfer to psych (5) Hypokalemia: Potassium 4 today Continue monitor BMP DVT ppx: teds, scds CODE: Full Dispo: Medically clear to transfer to mental health today Total Time Total Time Spent Total Time Spent (In Minutes): 35 minutes Discharge Plan Discharge Items Patient Disposition: Transfer Behavioral Health Fac Reason For Visit: OVERDOSE Discharge Diagnosis: (1) Overdose: (2) Depression: (3) Suicidal ideations: (4) Prolonged Q-T interval on ECG: (5) Hypokalemia: Activity: Resume your previous activity Non-emergency contact: Primary Care Provider Call non-emergency contact if: you have any medication questions Follow-up/Referrals: PCP,NO [Primary Care Provider] - Diet: Regular Addtl Attending Provider Instructions: Transfer to Mental health unit Follow up with your primary care provider once discharge from the mental health unit Continue avoiding medications that can cause QTC prolongation Continue suicide precaution Psychiatrist will advise you when to resume your psych mediation Pending Studies at Discharge: No Stand-Alone Forms: [facility] DNR: No Lines: None Urinary Catheter: No Medications and DC Order Prescriptions: Discontinued escitalopram oxalate [Lexapro] 20 mg Tablet 20 mg PO DAILY RF: 0 Discharge Orders: Discharge Order (Routine); Ordered 01/28/21 Ordered By: Yoselin Capone Admission Data Admit Date/Time: 01/25/21 09:33 Attending Provider: Yoselin Capone Admit Provider: Yoselin Capone Primary Care Provider: PCP,NO Other Providers: Yoselin Capone ; Domi Mock ; Mine Villela ; Gretel Villalpando ; Amado Larsen
--- NOTE | 2021-01-29 05:43 | Electrocardiogram Report ---
Test Reason : Blood Pressure : / mmHG Vent. Rate : 077 BPM Atrial Rate : 077 BPM P-R Int : 128 ms QRS Dur : 092 ms QT Int : 444 ms P-R-T Axes : 075 048 058 degrees QTc Int : 502 ms Normal sinus rhythm T wave abnormality, consider anterior ischemia Prolonged QT Abnormal ECG When compared with ECG of 27-JAN-2021 06:45, T wave inversion more evident in Anterior leads Confirmed by Delbert Mcmullen ([id number]) on 01/29/2021 5:43:08 AM Referred By: REFERRED SELF Confirmed By:Delbert Mcmullen
--- NOTE | 2021-01-29 06:02 | Electrocardiogram Report ---
Test Reason : Blood Pressure : / mmHG Vent. Rate : 075 BPM Atrial Rate : 075 BPM P-R Int : 126 ms QRS Dur : 088 ms QT Int : 450 ms P-R-T Axes : 070 044 058 degrees QTc Int : 502 ms Normal sinus rhythm T wave abnormality, consider anterior ischemia Prolonged QT Abnormal ECG When compared with ECG of 27-JAN-2021 15:10, T wave inversion less evident in Anterior leads Confirmed by Delbert Mcmullen ([id number]) on 01/29/2021 6:01:59 AM Referred By: REFERRED SELF Confirmed By:Delbert Mcmullen
--- NOTE | 2021-01-29 06:19 | Electrocardiogram Report ---
Test Reason : Blood Pressure : / mmHG Vent. Rate : 074 BPM Atrial Rate : 074 BPM P-R Int : 120 ms QRS Dur : 084 ms QT Int : 436 ms P-R-T Axes : 076 063 036 degrees QTc Int : 483 ms Normal sinus rhythm T wave abnormality, consider anterior ischemia Prolonged QT Abnormal ECG When compared with ECG of 27-JAN-2021 20:24, T wave inversion now evident in Inferior leads Confirmed by Delbert Mcmullen ([id number]) on 01/29/2021 6:18:48 AM Referred By: REFERRED SELF Confirmed By:Delbert Mcmullen
== END 2021-01-28 13:40 | DRG 918 ==
LOC: ED 06:13 → 2N 09:33

== ENCOUNTER 2021-01-28 12:17 | Inpatient (IN) ==
[2021-01-28] MEDS ORDERED: MAGNESIUM HYDROXIDE SUSP 30 ML UDC PO PRN (12:23)
[2021-01-28] MEDS ORDERED: hydrOXYzine HCl 25 MG TAB PO PRN ×2 (12:23)
[2021-01-28] MEDS ORDERED: ACETAMINOPHEN 325 MG TAB PO PRN (12:23)
[2021-01-28] MEDS ORDERED: BISMUTH SUBSALICYLATE LIQD 236 ML PO PRN (12:23)
[2021-01-28] MEDS ORDERED: ALUMINUM/MAGNESIUM SUSP 30 ML UDC PO PRN (12:23)
[2021-01-28] MEDS ORDERED: SODIUM CHLORIDE 0.65% NA SOLN 45 ML (OCEAN) PRN (12:23)
[2021-01-28] MEDS ORDERED: PATIENT'S ALLERGY INFO NEEDS ENTERED SCH (12:30)
[2021-01-28] MEDS ORDERED: diazePAM 2 MG TABLET PO ONE (14:23)
[2021-01-28] MEDS ORDERED: LORazepam 1 MG TAB PO PRN (14:24)
--- NOTE | 2021-01-28 15:39 | History & Physical ---
Date of Service January 28, 2021 Impression / Recommendations Impression 25-year-old woman with anxiety and depression and recent suicide attempt via overdose. While the exact triggers for her overdose are still unclear at this point, patient does endorse significant anxiety along with her depression. She will require inpatient hospitalization for purposes of safety, stabilization, and medication management. (1) Major depressive disorder with current active episode: The patient was admitted to the [facility] ([facility]) on every 15 minute checks (behavioral with suicide precautions for safety. The patient will participate in group, recreational, and milieu therapies and will be offered additional individual and family sessions as clinically appropriate. 1patient ministered a one-time dose of Valium to milligrams. We will resume Lexapro medication tomorrow morning at 10 mg. Plan to augment with Abilify Psychiatric History Identifying Data ALIYAH GARIBAY is a 25-year-old F who currently lives in [place] with her , has a history of anxiety and depression, and was admitted on 01/28/21 12:23 on a 201 voluntary commitment for suicide attempt via overdose. Chief Complaint "I am very socially awkward". History of Present Illness HPI as per initial psychiatric consultation "HPI as per psychiatric liaison "Rounded on patient to complete initial assessment. Pt. sitting up in bed alert and oriented, affect flat. Answered questions appropriately. She reports that she has a history of depression, starting in high school. Past attempt was 2 years ago of OD with no inpatient mental health treatment. Denies any family history. She is prescribed medications through [facility], along with therapy through this site. She is prescribed Lexapro 20mg, and reports that she had taken an OD of an old script of Prozac and Lexapro. She estimates 1GM of medication was taken. She reports getting 2 weeks ago to her Aris who is her support system. She describes her stressors as "society" and how messed up the world is. She is currently employed at [employer]. Denies any Drug use, with occasional alcohol use. She did sign an PORSCHE for her . She currently has no PCP. " Upon evaluation, patient endorsed the above information is accurate. Stated that her depression goes back to her high school years, and she is to be consistently sought out help on [facility] for her depression. Patient unable to cite specific triggers or sources of her depression, just states life in general. When asked what her biggest stressor was patient said "waking up tomorrow" referring to the day following her overdose. Patient unable to cite any specific events or that they were's more stressful than others. Patient cites her menstrual period as main reason for mood dysregulation. She states th at since having taken the overdose and having come to the hospital she feels much better, and is denying any current suicidal ideation. Patient denies any history of physical, sexual, emotional trauma. States that she had a good childhood growing up. States that she recently moved from [place] to [place] to be with her Aris. She was initially started on Prozac medication, but then discontinued due to feeling dizzy, then restarted on Lexapro medication with an increase the dosage. Patient states that she used her leftover prescriptions to overdose. She denies any drug use. Admits to occasional alcohol use but denies problematic drinking. She denies any psychotic, manic symptoms. Denies AVH, denies paranoia"" Patient has since been residing on the medical floors receiving serial EKGs. She was transferred over to [facility] when medically appropriate to do so. She continues to endorse the above information is accurate, adds that her anxiety plays a can significant role in her distress. However when asked about factors which contribute to her anxiety, patient gives a somewhat bizarre answer by stating she is upset with the way society is managed, and the role of government and society. Aside from this bizarre statement, patient denies any auditory hallucinations, paranoia, delusions. Past Psychiatric History Current Psychiatric Diagnosis: MDD Allergies Allergy/AdvReac Type Severity Reaction Status Date / Time No Known Allergies Allergy Unverified 01/28/21 12:28 Home Medications Medication Instructions Recorded Confirmed Type escitalopram oxalate 20 mg tablet 20 mg PO DAILY 01/28/21 01/28/21 History Alcohol History Hx of Alcohol Use Over the Past 12 Months: No Smoking Use Smoking Status: Never smoker Personal History Living Arrangements: Apartment Highest Grade Completed: High School Graduate Marital Status: Number Of Children: 0 Beliefs That Will Affect Care: None Patient History Social History Smoking Status: Never smoker Hx Alcohol Use: Yes Hx Substance Use: No Preferred Language: Welsh Communication Ability: Effective Beliefs That Will Affect Care: None Current Living Situation: Spouse Feels Safe at Home: Yes Assistive Devices: Glasses Review of Systems Review of Systems: All systems reviewed & are unremarkable except as noted in HPI & below Physical Exam Psychiatric: Orientation: alert and oriented x 3 Apperance: appropriately dressed Eye Contact: + fair eye contact Motor Behavior: no abnormal motor movements Speech: normal rate/rhythm/volume of speech Affect: + anxious affect and + constricted affect Mood: + anxious mood Thought Process: goal directed thought process Thought Content: reality based without delusions Recent attempt Homicidal Thoughts: denies homicidal thoughts Hallucinations: no auditory hallucinations and no visual hallucinations Cognition: recent memory grossly intact Estimated Intelligence: average estimated intelligence Insight: + limited insight Judgement: + poor judgement Exam Statement: A physical exam was performed on the medical floor prior to admission to the unit by Dr. Capone. I accept that physical as correct/medical clearance for the inpatient physical exam. Results & Data ([facility]) Current Inpatient Medications Current Inpatient Medications: Current Inpatient Medications Acetaminophen (Acetaminophen 325 Mg Tab) 650 mg PO Q4H PRN PRN Reason: Headache or Minor Fever Stop: 02/27/21 12:22 Al Hydrox/Mg Hydrox/Simethicone (Aluminum/Magnesium Susp 30 Ml Udc) 30 ml PO Q4H PRN PRN Reason: GI Upset Stop: 02/27/21 12:22 Bismuth Subsalicylate (Bismuth Subsalicylate Liqd 236 Ml) 15 ml PO PRN PRN PRN Reason: Loose Stool Stop: 02/27/21 12:22 Escitalopram Oxalate (Escitalopram Oxalate 10 Mg Tab) 10 mg PO QAM ERICA Stop: 02/28/21 08:59 Hydroxyzine HCl (Hydroxyzine Hcl 25 Mg Tab) 50 mg PO HSZ PRN PRN Reason: Insomnia Stop: 02/27/21 12:22 Hydroxyzine HCl (Hydroxyzine Hcl 25 Mg Tab) 25 mg PO Q4H PRN PRN Reason: Anxiety Stop: 02/27/21 12:22 Lorazepam (Lorazepam 1 Mg Tab) 1 mg PO Q8 PRN PRN Reason: Anxiety Stop: 02/27/21 14:23 Magnesium Hydroxide (Magnesium Hydroxide Susp 30 Ml Udc) 30 ml PO DAILY PRN PRN Reason: Constipation Stop: 02/27/21 12:22 Sodium Chloride (Sodium Chloride 0.65% Na Soln 45 Ml ([place])) 1 - 2 sprays NA PRN PRN PRN Reason: Nasal Dryness/Congestion Stop: 02/27/21 12:22
[2021-01-28] MEDS: ACETAMINOPHEN PO PRN (19:21)
[2021-01-28] MEDS: ASPIRIN PO PRN (19:21)
[2021-01-28] MEDS: CAFFEINE PO PRN (19:21)
[2021-01-29] MEDS ORDERED: EXCEDRIN MIGRAINE: ORDER AWAITING ACTION SCH
[2021-01-29] MEDS ORDERED: ESCITALOPRAM OXALATE 10 MG TAB PO SCH (09:00)
[2021-01-29] MEDS ORDERED: diazePAM 2 MG TABLET PO ONE (13:45)
--- NOTE | 2021-01-29 14:54 | Psychiatric Progress Note ---
Date of Service January 29, 2021 Impression / Recommendations Impression 25-year-old woman with anxiety and depression and recent suicide attempt via overdose. While the exact triggers for her overdose are still unclear at this point, patient does endorse significant anxiety along with her depression. She will require inpatient hospitalization for purposes of safety, stabilization, and medication management. (1) Major depressive disorder with current active episode: The patient was admitted to the [facility] ([facility]) on every 15 minute checks (behavioral with suicide precautions for safety. The patient will participate in group, recreational, and milieu therapies and will be offered additional individual and family sessions as clinically appropriate. 01/28/2021atient ministered a one-time dose of Valium to milligrams. We will resume Lexapro medication tomorrow morning at 10 mg. Plan to augment with Abilify. 01/29/2021exapro will be increased to 20 mg p.o. every morning. Will add Abilify 2.5 mg. Interval History Chief Complaint "Everything is fine". Review of Systems Sleep Information Total Hours of Sleep: 8 Meal Information Percent Meal Consumed - Breakfast: 100 Percent Meal Consumed - Lunch: 100 Percent Meal Consumed - Dinner: 100 Subjective Subjective Patient seen, chart reviewed and case discussed with treatment team, nursing and social work. Patient reports a good night of sleep and strong appetite. No side effects reported or observed. Patient states that the Valium medication was helpful to her yesterday with her anxiety. She is agreeable to try a increased dosage today as she was still displaying significant anxiety despite not acknowledging it herself. Regarding mood, patient reports some improvement which they attribute to the medications as well as the therapy they have received on the unit. Patient remains somewhat bizarre, and seems indifferent to her treatment as well as her attempt which prompted admission. I spent 30 minutes with the patient, 50% of which was dedicated to counselling and coordination of care. Physical Exam Psychiatric Orientation: alert and oriented x 3 Apperance: appropriately dressed Eye Contact: + fair eye contact Motor Behavior: no abnormal motor movements Speech: normal rate/rhythm/volume of speech Affect: + anxious affect and + constricted affect Mood: + anxious mood Thought Process: goal directed thought process Thought Content: reality based without delusions Homicidal Thoughts: denies homicidal thoughts Hallucinations: no auditory hallucinations and no visual hallucinations Cognition: recent memory grossly intact Estimated Intelligence: average estimated intelligence Insight: + limited insight Judgement: + poor judgement Vital Signs (Past 24 Hours) Last Vital Signs Temp 36.7 C 01/29/21 06:51 Pulse 96 H 01/29/21 06:51 Resp 16 01/29/21 06:51 BP 88/59 L 01/29/21 06:51 Results & Data ([facility] [[email or web address] Current Inpatient Medications Current Inpatient Medications: Current Inpatient Medications Acetaminophen (Acetaminophen 325 Mg Tab) 650 mg PO Q4H PRN PRN Reason: Headache or Minor Fever Stop: 02/27/21 12:22 Acetaminophen/Aspirin/Caffeine (Aspirin/Acetaminophen/Caffeine) 1 ea PO DAILY PRN; Protocol PRN Reason: Migraine Headache Stop: 02/27/21 18:54 Last Admin: 01/28/21 19:21 Dose: 1 ea Documented by: Al Hydrox/Mg Hydrox/Simethicone (Aluminum/Magnesium Susp 30 Ml Udc) 30 ml PO Q4H PRN PRN Reason: GI Upset Stop: 02/27/21 12:22 Bismuth Subsalicylate (Bismuth Subsalicylate Liqd 236 Ml) 15 ml PO PRN PRN PRN Reason: Loose Stool Stop: 02/27/21 12:22 Escitalopram Oxalate (Escitalopram Oxalate 20 Mg Tab) 20 mg PO QAM ERICA Stop: 03/01/21 08:59 Hydroxyzine HCl (Hydroxyzine Hcl 25 Mg Tab) 50 mg PO HSZ PRN PRN Reason: Insomnia Stop: 02/27/21 12:22 Hydroxyzine HCl (Hydroxyzine Hcl 25 Mg Tab) 25 mg PO Q4H PRN PRN Reason: Anxiety Stop: 02/27/21 12:22 Lorazepam (Lorazepam 1 Mg Tab) 1 mg PO Q8 PRN PRN Reason: Anxiety Stop: 02/27/21 14:23 Magnesium Hydroxide (Magnesium Hydroxide Susp 30 Ml Udc) 30 ml PO DAILY PRN PRN Reason: Constipation Stop: 02/27/21 12:22 Sodium Chloride (Sodium Chloride 0.65% Na Soln 45 Ml ([place])) 1 - 2 sprays NA PRN PRN PRN Reason: Nasal Dryness/Congestion Stop: 02/27/21 12:22 Mental Health & Subst Abuse Tx Therapist Name of Therapist: Finale Desserts Date of Therapist Appointment: 02/14/21
[2021-01-30] MEDS: ESCITALOPRAM OXALATE 20 MG TAB PO SCH (08:20)
--- NOTE | 2021-01-30 11:38 | Psychiatric Progress Note ---
Date of Service January 30, 2021 Impression / Recommendations Impression 25-year-old woman with anxiety and depression and recent suicide attempt via overdose. While the exact triggers for her overdose are still unclear at this point, patient does endorse significant anxiety along with her depression. She will require inpatient hospitalization for purposes of safety, stabilization, and medication management. (1) Major depressive disorder with current active episode: The patient was admitted to the [facility] ([facility]) on every 15 minute checks (behavioral with suicide precautions for safety. The patient will participate in group, recreational, and milieu therapies and will be offered additional individual and family sessions as clinically appropriate. 01/28/2021atient ministered a one-time dose of Valium to milligrams. We will resume Lexapro medication tomorrow morning at 10 mg. Plan to augment with Abilify. 01/29/2021exapro will be increased to 20 mg p.o. every morning. 01/30/2021atient currently taking Lexapro 20 mg p.o. every morning. Occasionally utilizing Valium her labs have him for anxiety. We will augment her regimen with Abilify 2.5 mg starting tomorrow morning. Interval History Chief Complaint "I am learning a lot here". Review of Systems Sleep Information Total Hours of Sleep: 7 Meal Information Percent Meal Consumed - Breakfast: 100 Percent Meal Consumed - Lunch: 100 Percent Meal Consumed - Dinner: 90 Subjective Subjective Patient was seen & assessed and interval progress reviewed with treatment team nursing and social work Patient reports feeling "fine". She states that she feels she is learning a lot here. She is seen attending groups and contributed meaningfully as well as interacting with peers. Patient still remains quite bizarre regarding her suicide attempt and the rationale for it. Family meeting today to hopefully elucidate some of these questions and concerns. Additionally she acknowledges struggling with impulsivity. Patient was informed that Abilify medication is considered a good treatment for impulsivity and may also help with disorganized or bizarre thoughts. Patient in agreement. She is eating well and sleeping well. I spent 30 minutes with the patient, 50% of which was dedicated to counselling and coordination of care. Physical Exam Psychiatric Orientation: alert and oriented x 3 Apperance: appropriately dressed Eye Contact: + fair eye contact Motor Behavior: no abnormal motor movements Speech: normal rate/rhythm/volume of speech Affect: + anxious affect and + constricted affect Mood: + anxious mood Thought Process: goal directed thought process Thought Content: reality based without delusions Homicidal Thoughts: denies homicidal thoughts Hallucinations: no auditory hallucinations and no visual hallucinations Cognition: recent memory grossly intact Estimated Intelligence: average estimated intelligence Insight: + limited insight Judgement: + poor judgement Vital Signs (Past 24 Hours) Last Vital Signs Temp 36.7 C 01/30/21 06:44 Pulse 83 01/30/21 06:44 Resp 18 01/30/21 06:44 BP 93/63 L 01/30/21 06:44 Results & Data ([facility]) Current Inpatient Medications Current Inpatient Medications: Current Inpatient Medications Acetaminophen (Acetaminophen 325 Mg Tab) 650 mg PO Q4H PRN PRN Reason: Headache or Minor Fever Stop: 02/27/21 12:22 Acetaminophen/Aspirin/Caffeine (Aspirin/Acetaminophen/Caffeine) 1 ea PO DAILY PRN; Protocol PRN Reason: Migraine Headache Stop: 02/27/21 18:54 Last Admin: 01/28/21 19:21 Dose: 1 ea Documented by: Al Hydrox/Mg Hydrox/Simethicone (Aluminum/Magnesium Susp 30 Ml Udc) 30 ml PO Q4H PRN PRN Reason: GI Upset Stop: 02/27/21 12:22 Bismuth Subsalicylate (Bismuth Subsalicylate Liqd 236 Ml) 15 ml PO PRN PRN PRN Reason: Loose Stool Stop: 02/27/21 12:22 Escitalopram Oxalate (Escitalopram Oxalate 20 Mg Tab) 20 mg PO QAM ERICA Stop: 03/01/21 08:59 Last Admin: 01/30/21 08:20 Dose: 20 mg Documented by: Hydroxyzine HCl (Hydroxyzine Hcl 25 Mg Tab) 50 mg PO HSZ PRN PRN Reason: Insomnia Stop: 02/27/21 12:22 Hydroxyzine HCl (Hydroxyzine Hcl 25 Mg Tab) 25 mg PO Q4H PRN PRN Reason: Anxiety Stop: 02/27/21 12:22 Lorazepam (Lorazepam 1 Mg Tab) 1 mg PO Q8 PRN PRN Reason: Anxiety Stop: 02/27/21 14:23 Magnesium Hydroxide (Magnesium Hydroxide Susp 30 Ml Udc) 30 ml PO DAILY PRN PRN Reason: Constipation Stop: 02/27/21 12:22 Sodium Chloride (Sodium Chloride 0.65% Na Soln 45 Ml ([place])) 1 - 2 sprays NA PRN PRN PRN Reason: Nasal Dryness/Congestion Stop: 02/27/21 12:22 Mental Health & Subst Abuse Tx Therapist Name of Therapist: [facility] Date of Therapist Appointment: 02/14/21 Post Discharge Appointments Primary Care Physician Name Of Family Doctor: HELEN Polanco (will see a PA for first appointment) Primary Care Date of Appointment with PCP: 02/08/21 Time of Appointment with PCP: 3:30 PM Provider Appointment Comment: [address], [place] [address]
[2021-01-31] MEDS: ESCITALOPRAM OXALATE 20 MG TAB PO SCH (07:46)
[2021-01-31] MEDS: ARIPiprazole 5 MG TAB PO SCH (07:46)
--- NOTE | 2021-01-31 15:39 | Psychiatric Progress Note ---
Date of Service January 31, 2021 Impression / Recommendations Impression 25-year-old woman with anxiety and depression and recent suicide attempt via overdose. While the exact triggers for her overdose are still unclear at this point, patient does endorse significant anxiety along with her depression. She will require inpatient hospitalization for purposes of safety, stabilization, and medication management. (1) Major depressive disorder with current active episode: The patient was admitted to the [facility] ([facility]) on every 15 minute checks (behavioral with suicide precautions for safety. The patient will participate in group, recreational, and milieu therapies and will be offered additional individual and family sessions as clinically appropriate. 01/28/2021atient ministered a one-time dose of Valium to milligrams. We will resume Lexapro medication tomorrow morning at 10 mg. Plan to augment with Abilify. 01/29/2021exapro will be increased to 20 mg p.o. every morning. 01/30/2021atient currently taking Lexapro 20 mg p.o. every morning. Occasionally utilizing Valium for anxiety. We will augment her regimen with Abilify 2.5 mg starting tomorrow morning. 01/31/2021atient continues to do well on the unit. Medications will stay at Lexapro 20 p.o. every morning, Abilify 2.5 p.o. nightly. Interval History Chief Complaint "I think its helpful being here". Review of Systems Sleep Information Total Hours of Sleep: 7.25 Sleep Comments: pt on q-15 minute checks Meal Information Percent Meal Consumed - Breakfast: 100 Percent Meal Consumed - Lunch: 100 Percent Meal Consumed - Dinner: 100 Subjective Subjective Patient seen, chart reviewed and case discussed with treatment team, nursing and social work. Patient reports a good night of sleep and strong appetite. Patient has been compliant with medication. Reported feeling a little bit tired today after Abilify administration. Patient was instructed that this effect will dissipate over the coming days. Regarding mood, patient reports some improvement which they attribute to the medications as well as the therapy they have received on the unit. Patient was a little more open today about her attempt. Went on to state that she was feeling next essentially dreadful and overwhelmed with life while at the same time underwhelmed with her recent marriage. I spent 30 minutes with the patient, 50% of which was dedicated to counselling and coordination of care. Physical Exam Psychiatric Orientation: alert and oriented x 3 Apperance: appropriately dressed Eye Contact: + fair eye contact Motor Behavior: no abnormal motor movements Speech: normal rate/rhythm/volume of speech Affect: + anxious affect and + constricted affect Mood: + anxious mood Thought Process: goal directed thought process Thought Content: reality based without delusions Homicidal Thoughts: denies homicidal thoughts Hallucinations: no auditory hallucinations and no visual hallucinations Cognition: recent memory grossly intact Estimated Intelligence: average estimated intelligence Insight: + limited insight Judgement: + poor judgement Vital Signs (Past 24 Hours) Last Vital Signs Temp 36.4 C L 01/31/21 06:29 Pulse 86 01/31/21 06:30 Resp 16 01/31/21 06:29 BP 104/67 01/31/21 06:30 Results & Data ([facility]) Current Inpatient Medications Current Inpatient Medications: Current Inpatient Medications Acetaminophen (Acetaminophen 325 Mg Tab) 650 mg PO Q4H PRN PRN Reason: Headache or Minor Fever Stop: 02/27/21 12:22 Acetaminophen/Aspirin/Caffeine (Aspirin/Acetaminophen/Caffeine) 1 ea PO DAILY PRN; Protocol PRN Reason: Migraine Headache Stop: 02/27/21 18:54 Last Admin: 01/28/21 19:21 Dose: 1 ea Documented by: Al Hydrox/Mg Hydrox/Simethicone (Aluminum/Magnesium Susp 30 Ml Udc) 30 ml PO Q4H PRN PRN Reason: GI Upset Stop: 02/27/21 12:22 Aripiprazole (Aripiprazole 5 Mg Tab) 2.5 mg PO QAM ERICA Stop: 03/02/21 08:59 Last Admin: 01/31/21 07:46 Dose: 2.5 mg Documented by: Bismuth Subsalicylate (Bismuth Subsalicylate Liqd 236 Ml) 15 ml PO PRN PRN PRN Reason: Loose Stool Stop: 02/27/21 12:22 Escitalopram Oxalate (Escitalopram Oxalate 20 Mg Tab) 20 mg PO QAM ERICA Stop: 03/01/21 08:59 Last Admin: 01/31/21 07:46 Dose: 20 mg Documented by: Hydroxyzine HCl (Hydroxyzine Hcl 25 Mg Tab) 50 mg PO HSZ PRN PRN Reason: Insomnia Stop: 02/27/21 12:22 Hydroxyzine HCl (Hydroxyzine Hcl 25 Mg Tab) 25 mg PO Q4H PRN PRN Reason: Anxiety Stop: 02/27/21 12:22 Lorazepam (Lorazepam 1 Mg Tab) 1 mg PO Q8 PRN PRN Reason: Anxiety Stop: 02/27/21 14:23 Last Admin: 01/30/21 12:52 Dose: 1 mg Documented by: Magnesium Hydroxide (Magnesium Hydroxide Susp 30 Ml Udc) 30 ml PO DAILY PRN PRN Reason: Constipation Stop: 02/27/21 12:22 Sodium Chloride (Sodium Chloride 0.65% Na Soln 45 Ml ([place])) 1 - 2 sprays NA PRN PRN PRN Reason: Nasal Dryness/Congestion Stop: 02/27/21 12:22 Mental Health & Subst Abuse Tx Therapist Name of Therapist: [facility] Payment Date of Therapist Appointment: 02/14/21 Post Discharge Appointments Primary Care Physician Name Of Family Doctor: HELEN Ploanco (will see a PA for first appointment) Primary Care Date of Appointment with PCP: 02/08/21 Time of Appointment with PCP: 3:30 PM Provider Appointment Comment: [address], [place] [address]
[2021-02-01] MEDS: ARIPiprazole 5 MG TAB PO SCH (08:11)
[2021-02-01] MEDS: ESCITALOPRAM OXALATE 20 MG TAB PO SCH (08:12)
--- NOTE | 2021-02-01 12:23 | Psychiatric Progress Note ---
Date of Service February 01, 2021 Impression / Recommendations Impression 25-year-old woman with anxiety and depression and recent suicide attempt via overdose. While the exact triggers for her overdose are still unclear at this point, patient does endorse significant anxiety along with her depression. She will require inpatient hospitalization for purposes of safety, stabilization, and medication management. (1) Major depressive disorder with current active episode: The patient was admitted to the [facility] ([facility] mental health unit) on every 15 minute checks (behavioral with suicide precautions for safety. The patient will participate in group, recreational, and milieu therapies and will be offered additional individual and family sessions as clinically appropriate. 01/28/2021atient ministered a one-time dose of Valium to milligrams. We will resume Lexapro medication tomorrow morning at 10 mg. Plan to augment with Abilify. 01/29/2021exapro will be increased to 20 mg p.o. every morning. 01/30/2021atient currently taking Lexapro 20 mg p.o. every morning. Occasionally utilizing Valium for anxiety. We will augment her regimen with Abilify 2.5 mg starting tomorrow morning. 01/31/2021atient continues to do well on the unit. Medications will stay at Lexapro 20 p.o. every morning, Abilify 2.5 p.o. nightly. 02/01/2021-- Will plan to increase Abilify dose to intended target dose of 5mg po qam starting tomorrow. Will continue on Lexapro 20mg po qam Interval History Chief Complaint "I'm okay". Review of Systems Sleep Information Total Hours of Sleep: 7.75 Sleep Comments: pt on q-15 minute checks Meal Information Percent Meal Consumed - Breakfast: 100 Percent Meal Consumed - Lunch: 100 Percent Meal Consumed - Dinner: 100 Subjective Subjective Patient seen, chart reviewed and case discussed with treatment team, nursing and social work. Patient reports a good night of sleep and strong appetite. No side effects reported or observed. Regarding mood, patient reports feeling better. She attributes her progress to both the therapy and the medications. I spent 30 minutes with the patient, 50% of which was dedicated to counselling and coordination of care. Physical Exam Psychiatric Orientation: alert and oriented x 3 Apperance: appropriately dressed Eye Contact: + fair eye contact Motor Behavior: no abnormal motor movements Speech: normal rate/rhythm/volume of speech Affect: + anxious affect and + constricted affect Mood: + anxious mood Thought Process: goal directed thought process Thought Content: reality based without delusions Homicidal Thoughts: denies homicidal thoughts Hallucinations: no auditory hallucinations and no visual hallucinations Cognition: recent memory grossly intact Estimated Intelligence: average estimated intelligence Insight: + limited insight Judgement: + poor judgement Vital Signs (Past 24 Hours) Last Vital Signs Temp 36.7 C 02/01/21 06:27 Pulse 97 H 02/01/21 06:28 Resp 16 02/01/21 06:27 BP 90/56 L 02/01/21 06:28 Results & Data (U) Current Inpatient Medications Current Inpatient Medications: Current Inpatient Medications Acetaminophen (Acetaminophen 325 Mg Tab) 650 mg PO Q4H PRN PRN Reason: Headache or Minor Fever Stop: 02/27/21 12:22 Acetaminophen/Aspirin/Caffeine (Aspirin/Acetaminophen/Caffeine) 1 ea PO DAILY PRN; Protocol PRN Reason: Migraine Headache Stop: 02/27/21 18:54 Last Admin: 01/28/21 19:21 Dose: 1 ea Documented by: Al Hydrox/Mg Hydrox/Simethicone (Aluminum/Magnesium Susp 30 Ml Udc) 30 ml PO Q4H PRN PRN Reason: GI Upset Stop: 02/27/21 12:22 Aripiprazole (Aripiprazole 5 Mg Tab) 2.5 mg PO QAM ERICA Stop: 03/02/21 08:59 Last Admin: 02/01/21 08:11 Dose: 2.5 mg Documented by: Bismuth Subsalicylate (Bismuth Subsalicylate Liqd 236 Ml) 15 ml PO PRN PRN PRN Reason: Loose Stool Stop: 02/27/21 12:22 Escitalopram Oxalate (Escitalopram Oxalate 20 Mg Tab) 20 mg PO QAM ERICA Stop: 03/01/21 08:59 Last Admin: 02/01/21 08:12 Dose: 20 mg Documented by: Hydroxyzine HCl (Hydroxyzine Hcl 25 Mg Tab) 50 mg PO HSZ PRN PRN Reason: Insomnia Stop: 02/27/21 12:22 Hydroxyzine HCl (Hydroxyzine Hcl 25 Mg Tab) 25 mg PO Q4H PRN PRN Reason: Anxiety Stop: 02/27/21 12:22 Lorazepam (Lorazepam 1 Mg Tab) 1 mg PO Q8 PRN PRN Reason: Anxiety Stop: 02/27/21 14:23 Last Admin: 01/30/21 12:52 Dose: 1 mg Documented by: Magnesium Hydroxide (Magnesium Hydroxide Susp 30 Ml Udc) 30 ml PO DAILY PRN PRN Reason: Constipation Stop: 02/27/21 12:22 Sodium Chloride (Sodium Chloride 0.65% Na Soln 45 Ml ([place])) 1 - 2 sprays NA PRN PRN PRN Reason: Nasal Dryness/Congestion Stop: 02/27/21 12:22 Mental Health & Subst Abuse Tx Therapist Name of Therapist: [email or web address] Date of Therapist Appointment: 02/14/21 Post Discharge Appointments Primary Care Physician Name Of Family Doctor: HELEN Polanco (will see a PA for first appointment) Primary Care Date of Appointment with PCP: 02/08/21 Time of Appointment with PCP: 3:30 PM Provider Appointment Comment: [address], [place] [address]
[2021-02-01] MEDS ORDERED: ARIPiprazole 5 MG TAB PO ONE (21:00)
[2021-02-02] MEDS ORDERED: ARIPiprazole 5 MG TAB PO SCH (09:00)
[2021-02-02] MEDS: ESCITALOPRAM OXALATE 20 MG TAB PO SCH (09:06)
[2021-02-02 09:07] LABS: Hematocrit (blood only) 39.4 % (37-47); Hemoglobin 13.5 g/dL (12.0-16.0); Mean Corpuscular Hgb Conc 34.3 g/dL (32-36); Mean Corpuscular Volume 90.4 fL (80-100); Mean Platelet Volume 9.3 fL (7.4-10.4); Platelet Count 236 K/uL (130-400); RDW Coefficient of Variation 12.5 % (11.5-14.5); RDW Standard Deviation 41.4 fL (36.4-46.3); Red Blood Count 4.36 M/uL (4.2-5.4); White Blood Count 7.83 K/uL (4.8-10.8)
[2021-02-02 09:45] LABS: Albumin Level 3.7 gm/dl (3.4-5.0); Aspartate Aminotransferase 17 U/L (15-37); BUN Creatinine Ratio 11.9 (10-20); Bilirubin Direct < 0.1 mg/dl (0-0.2); Blood Urea Nitrogen 6 mg/dl (7-18); Calcium 8.8 mg/dl (8.5-10.1); Carbon Dioxide 28 mmol/L (21-32); Chloride 105 mmol/L (98-107); Creatinine Clr Calc Pharmacy 146.1 ml/min; Est GFR (African American) > 150.0 ml/min; Est GFR (Non-African American) 132.1 ml/min; Glucose 90 mg/dl (70-99); Potassium 3.7 mmol/L (3.5-5.1); Sodium 137 mmol/L (136-145)
[2021-02-02 09:48] LABS: Alanine Aminotransferase 23 U/L (12-78); Albumin Globulin Ratio 0.9 (0.9-2); Alkaline Phosphatase 76 U/L (45-117); Bilirubin,Total 0.2 mg/dl (0.2-1); Chol HDL Ratio 2; Cholesterol 134 mg/dl (0-200); HDL Cholesterol 56 mg/dl; LDL Cholesterol Calculated 64 mg/dl; Total Protein 7.7 gm/dl (6.4-8.2); Triglycerides 68 mg/dl (0-150); VLDL Cholesterol 14 mg/dl
--- NOTE | 2021-02-02 15:00 | Psychiatric Progress Note ---
Date of Service February 02, 2021 Impression / Recommendations Impression 25-year-old woman with anxiety and depression and recent suicide attempt via overdose. While the exact triggers for her overdose are still unclear at this point, patient does endorse significant anxiety along with her depression. She will require inpatient hospitalization for purposes of safety, stabilization, and medication management. (1) Major depressive disorder with current active episode: The patient was admitted to the [facility] ([facility] mental health unit) on every 15 minute checks (behavioral with suicide precautions for safety. The patient will participate in group, recreational, and milieu therapies and will be offered additional individual and family sessions as clinically appropriate. 01/28/2021atient ministered a one-time dose of Valium to milligrams. We will resume Lexapro medication tomorrow morning at 10 mg. Plan to augment with Abilify. 01/29/2021exapro will be increased to 20 mg p.o. every morning. 01/30/2021atient currently taking Lexapro 20 mg p.o. every morning. Occasionally utilizing Valium for anxiety. We will augment her regimen with Abilify 2.5 mg starting tomorrow morning. 01/31/2021atient continues to do well on the unit. Medications will stay at Lexapro 20 p.o. every morning, Abilify 2.5 p.o. nightly. 02/01/2021-- Will plan to increase Abilify dose to intended target dose of 5mg po qam starting tomorrow. Will continue on Lexapro 20mg po qam 02/02/2021exapro 20 mg p.o. every morning, Abilify 5 mg p.o. nightly. Patient making incremental progress. Interval History Chief Complaint "I am hoping to leave soon". Review of Systems Sleep Information Total Hours of Sleep: 6.5 Sleep Comments: pt on q-15 minute checks Meal Information Percent Meal Consumed - Breakfast: 100 Percent Meal Consumed - Lunch: 10 Percent Meal Consumed - Dinner: 100 Subjective Subjective Patient seen, chart reviewed and case discussed with treatment team, nursing and social work. Patient reports a good night of sleep and strong appetite. No side effects reported or observed. Patient is compliant with the Abilify medication. Regarding mood, patient reports some improvement which they attribute to the medications as well as the therapy they have received on the unit. Patient was hoping to be discharged home, she was spoken to about seriousness of her attempt and the necessity of ensuring stability prior to discharge. I spent 30 minutes with the patient, 50% of which was dedicated to counselling and coordination of care. Physical Exam Psychiatric Orientation: alert and oriented x 3 Apperance: appropriately dressed Eye Contact: + fair eye contact Motor Behavior: no abnormal motor movements Speech: normal rate/rhythm/volume of speech Affect: + anxious affect and + constricted affect Mood: + anxious mood Thought Process: goal directed thought process Thought Content: reality based without delusions Homicidal Thoughts: denies homicidal thoughts Hallucinations: no auditory hallucinations and no visual hallucinations Cognition: recent memory grossly intact Estimated Intelligence: average estimated intelligence Insight: + limited insight Judgement: + poor judgement Vital Signs (Past 24 Hours) Last Vital Signs Temp 36.6 C 02/02/21 06:35 Pulse 94 H 02/02/21 06:35 Resp 16 02/02/21 06:35 BP 94/59 L 02/02/21 06:35 Results & Data ([facility]) Laboratory Results Laboratory Results - last 24 hr 02/02/21 02/02/21 08:51 08:51 WBC 7.83 RBC 4.36 Hgb 13.5 Hct 39.4 MCV 90.4 MCH 31.0 MCHC 34.3 RDW Std Deviation 41.4 RDW Coeff of Vandana 12.5 Plt Count 236 MPV 9.3 Sodium 137 Potassium 3.7 Chloride 105 Carbon Dioxide 28 Anion Gap 5.0 BUN 6 L Creatinine 0.54 L Est Cr Clr Drug Dosing 146.1 Est GFR ( Amer) > 150.0 Est GFR (Non-Af Amer) 132.1 BUN/Creatinine Ratio 11.9 Glucose 90 Calcium 8.8 Total Bilirubin 0.2 Direct Bilirubin < 0.1 AST 17 ALT 23 Alkaline Phosphatase 76 Total Protein 7.7 Albumin 3.7 Globulin 4.0 Albumin/Globulin Ratio 0.9 Triglycerides 68 Cholesterol 134 LDL Cholesterol, Calc 64 VLDL Cholesterol, Calc 14 HDL Cholesterol 56 Cholesterol/HDL Ratio 2 Current Inpatient Medications Current Inpatient Medications: Current Inpatient Medications Acetaminophen (Acetaminophen 325 Mg Tab) 650 mg PO Q4H PRN PRN Reason: Headache or Minor Fever Stop: 02/27/21 12:22 Acetaminophen/Aspirin/Caffeine (Aspirin/Acetaminophen/Caffeine) 1 ea PO DAILY PRN; Protocol PRN Reason: Migraine Headache Stop: 02/27/21 18:54 Last Admin: 01/28/21 19:21 Dose: 1 ea Documented by: Al Hydrox/Mg Hydrox/Simethicone (Aluminum/Magnesium Susp 30 Ml Udc) 30 ml PO Q4H PRN PRN Reason: GI Upset Stop: 02/27/21 12:22 Aripiprazole (Aripiprazole 5 Mg Tab) 5 mg PO HS ERICA Stop: 03/04/21 21:59 Bismuth Subsalicylate (Bismuth Subsalicylate Liqd 236 Ml) 15 ml PO PRN PRN PRN Reason: Loose Stool Stop: 02/27/21 12:22 Escitalopram Oxalate (Escitalopram Oxalate 20 Mg Tab) 20 mg PO QAM ERICA Stop: 03/01/21 08:59 Last Admin: 02/02/21 09:06 Dose: 20 mg Documented by: Hydroxyzine HCl (Hydroxyzine Hcl 25 Mg Tab) 50 mg PO HSZ PRN PRN Reason: Insomnia Stop: 02/27/21 12:22 Hydroxyzine HCl (Hydroxyzine Hcl 25 Mg Tab) 25 mg PO Q4H PRN PRN Reason: Anxiety Stop: 02/27/21 12:22 Lorazepam (Lorazepam 1 Mg Tab) 1 mg PO Q8 PRN PRN Reason: Anxiety Stop: 02/27/21 14:23 Last Admin: 01/30/21 12:52 Dose: 1 mg Documented by: Magnesium Hydroxide (Magnesium Hydroxide Susp 30 Ml Udc) 30 ml PO DAILY PRN PRN Reason: Constipation Stop: 02/27/21 12:22 Sodium Chloride (Sodium Chloride 0.65% Na Soln 45 Ml ([place])) 1 - 2 sprays NA PRN PRN PRN Reason: Nasal Dryness/Congestion Stop: 02/27/21 12:22 Mental Health & Subst Abuse Tx Therapist Name of Therapist: [employer] Date of Therapist Appointment: 02/14/21 Post Discharge Appointments Primary Care Physician Name Of Family Doctor: HELEN Polanco (will see a PA for first appointment) Primary Care Date of Appointment with PCP: 02/08/21 Time of Appointment with PCP: 3:30 PM Provider Appointment Comment: [address], [place] [address]
[2021-02-02] MEDS: ASPIRIN PO PRN (16:32)
[2021-02-02] MEDS: ACETAMINOPHEN PO PRN (16:32)
[2021-02-02] MEDS: CAFFEINE PO PRN (16:32)
[2021-02-02] MEDS: ARIPiprazole 5 MG TAB PO SCH (20:25)
[2021-02-03] MEDS: ESCITALOPRAM OXALATE 20 MG TAB PO SCH (08:14)
--- NOTE | 2021-02-03 16:43 | Psychiatric Progress Note ---
Date of Service February 03, 2021 Impression / Recommendations Impression 25-year-old woman with anxiety and depression and recent suicide attempt via overdose. Diagnostically consistent with MDD with anxious features and impulsive suicide attempt. She will require inpatient hospitalization for purposes of safety, stabilization, and medication management. (1) Major depressive disorder with current active episode: The patient was admitted to the [facility] ([facility] mental health unit) on every 15 minute checks (behavioral with suicide precautions for safety. The patient will participate in group, recreational, and milieu therapies and will be offered additional individual and family sessions as clinically appropriate. 01/28/2021atient ministered a one-time dose of Valium to milligrams. We will resume Lexapro medication tomorrow morning at 10 mg. Plan to augment with Abilify. 01/29/2021exapro will be increased to 20 mg p.o. every morning. 01/30/2021atient currently taking Lexapro 20 mg p.o. every morning. Occasi onally utilizing Valium for anxiety. We will augment her regimen with Abilify 2.5 mg starting tomorrow morning. 01/31/2021atient continues to do well on the unit. Medications will stay at Lexapro 20 p.o. every morning, Abilify 2.5 p.o. nightly. 02/01/2021-- Will plan to increase Abilify dose to intended target dose of 5mg po qam starting tomorrow. Will continue on Lexapro 20mg po qam 02/02/2021exapro 20 mg p.o. every morning, Abilify 5 mg p.o. nightly. Patient making incremental progress. 02/03/2021--Completed insight-oriented reflection into factors leading to suicide attempt and is working on safety plan. Tolerating medications well-fasting glucose and fasting lipid panel normal. Discussed risks, benefits, alternatives in regard to her SSRI including potential for emergence of SI and need to seek emergent treatment and risks of abilify including tardive dyskinesia and metabolic side effects. Current AIMS score=0. Interval History Identifying Information 25 yo woman presenting with MDD and suicide attempt. Chief Complaint "next time I would talk with Vahid first". Review of Systems Sleep Information Total Hours of Sleep: 6.5 Sleep Comments: pt on q-15 minute checks Meal Information Percent Meal Consumed - Breakfast: 100 Percent Meal Consumed - Lunch: 100 Percent Meal Consumed - Dinner: 100 Nutrition Comment: per meal record. Subjective Subjective Chart and events of last 24 hours reviewed and discussed with multidisciplinary treatment team including nursing and social work. No acute events reported overnight. Slept well. Eating well. Attending groups. Adherent with medications. They report stable mood and no reported side effects from their medication. She created a timeline/root cause analysis leading up to her suicide attempt. Discussed how this demonstrated for her different points at which she would do things differently in the future if she again felt suicidal. Described how she plans to use her more as a resource and distraction like playing with her dogs. She denies SI today and is hopeful for discharge early this week if outpatient care can be established and if she continues to tolerate medication changes well . Spent more than 20 minutes in the care and coordination of this patient of which greater than 50% was dedicated to counseling and coordination of care. Physical Exam Psychiatric Orientation: alert and oriented x 3 Apperance: appropriately dressed Eye Contact: + fair eye contact Motor Behavior: no abnormal motor movements Speech: normal rate/rhythm/volume of speech Affect: + anxious affect and + constricted affect Mood: + anxious mood Thought Process: goal directed thought process Thought Content: reality based without delusions Suicidal Thoughts: denies suicidal thoughts Homicidal Thoughts: denies homicidal thoughts Hallucinations: no auditory hallucinations and no visual hallucinations Cognition: recent memory grossly intact Estimated Intelligence: average estimated intelligence Insight: + limited insight Judgement: + poor judgement Vital Signs (Past 24 Hours) Last Vital Signs Temp 36.7 C 02/03/21 06:53 Pulse 108 H 02/03/21 06:54 Resp 16 02/03/21 06:53 BP 105/72 02/03/21 06:54 Results & Data (U) Current Inpatient Medications Current Inpatient Medications: Current Inpatient Medications Acetaminophen (Acetaminophen 325 Mg Tab) 650 mg PO Q4H PRN PRN Reason: Headache or Minor Fever Stop: 02/27/21 12:22 Acetaminophen/Aspirin/Caffeine (Aspirin/Acetaminophen/Caffeine) 1 ea PO DAILY PRN; Protocol PRN Reason: Migraine Headache Stop: 02/27/21 18:54 Last Admin: 02/02/21 16:32 Dose: 1 ea Documented by: Al Hydrox/Mg Hydrox/Simethicone (Aluminum/Magnesium Susp 30 Ml Udc) 30 ml PO Q4H PRN PRN Reason: GI Upset Stop: 02/27/21 12:22 Aripiprazole (Aripiprazole 5 Mg Tab) 5 mg PO HS ERICA Stop: 03/04/21 21:59 Last Admin: 02/02/21 20:25 Dose: 5 mg Documented by: Bismuth Subsalicylate (Bismuth Subsalicylate Liqd 236 Ml) 15 ml PO PRN PRN PRN Reason: Loose Stool Stop: 02/27/21 12:22 Escitalopram Oxalate (Escitalopram Oxalate 20 Mg Tab) 20 mg PO QAM ERICA Stop: 03/01/21 08:59 Last Admin: 02/03/21 08:14 Dose: 20 mg Documented by: Hydroxyzine HCl (Hydroxyzine Hcl 25 Mg Tab) 50 mg PO HSZ PRN PRN Reason: Insomnia Stop: 02/27/21 12:22 Hydroxyzine HCl (Hydroxyzine Hcl 25 Mg Tab) 25 mg PO Q4H PRN PRN Reason: Anxiety Stop: 02/27/21 12:22 Lorazepam (Lorazepam 1 Mg Tab) 1 mg PO Q8 PRN PRN Reason: Anxiety Stop: 02/27/21 14:23 Last Admin: 01/30/21 12:52 Dose: 1 mg Documented by: Magnesium Hydroxide (Magnesium Hydroxide Susp 30 Ml Udc) 30 ml PO DAILY PRN PRN Reason: Constipation Stop: 02/27/21 12:22 Sodium Chloride (Sodium Chloride 0.65% Na Soln 45 Ml ([place])) 1 - 2 sprays NA PRN PRN PRN Reason: Nasal Dryness/Congestion Stop: 02/27/21 12:22 Mental Health & Subst Abuse Tx Therapist Name of Therapist: [employer] Date of Therapist Appointment: 02/14/21 Post Discharge Appointments Primary Care Physician Name Of Family Doctor: HELEN Polanco (will see a PA for first appointment) Primary Care Date of Appointment with PCP: 02/08/21 Time of Appointment with PCP: 3:30 PM Provider Appointment Comment: [address], [place] [address]
[2021-02-03] MEDS: ARIPiprazole 5 MG TAB PO SCH (20:29)
[2021-02-04] MEDS: ESCITALOPRAM OXALATE 20 MG TAB PO SCH (08:28)
--- NOTE | 2021-02-04 12:56 | Psychiatric Progress Note ---
Date of Service February 04, 2021 Impression / Recommendations Impression 25-year-old woman with anxiety and depression and recent suicide attempt via overdose. Diagnostically consistent with MDD with anxious features and impulsive suicide attempt. She's showing ongoing stable improvement with multiple consistent days without SI, improvement in depression and development of coping skills. Planning for tentative discharge tomorrow. Continues to tolerate lexapro and abilify well. (1) Major depressive disorder with current active episode: The patient was admitted to the [facility] ([facility] unit) on every 15 minute checks (behavioral with suicide precautions for safety. The patient will participate in group, recreational, and milieu therapies and will be offered additional individual and family sessions as clinically appropriate. 01/28/2021atient ministered a one-time dose of Valium to milligrams. We will resume Lexapro medication tomorrow morning at 10 mg. Plan to augment with Abilify. 01/29/2021exapro will be increased to 20 mg p.o. every morning. 01/30/2021atient currently taking Lexapro 20 mg p.o. every morning. Occasionally utilizing Valium for anxiety. We will augment her regimen with A bilify 2.5 mg starting tomorrow morning. 01/31/2021atient continues to do well on the unit. Medications will stay at Lexapro 20 p.o. every morning, Abilify 2.5 p.o. nightly. 02/01/2021-- Will plan to increase Abilify dose to intended target dose of 5mg po qam starting tomorrow. Will continue on Lexapro 20mg po qam 02/02/2021exapro 20 mg p.o. every morning, Abilify 5 mg p.o. nightly. Patient making incremental progress. 02/03/2021--Completed insight-oriented reflection into factors leading to suicide attempt and is working on safety plan. Tolerating medications well-fasting glucose and fasting lipid panel normal. Discussed risks, benefits, alternatives in regard to her SSRI including potential for emergence of SI and need to seek emergent treatment and risks of abilify including tardive dyskinesia and metabolic side effects. Current AIMS score=0. 02/04/2021--Showing steady improvement. Plan for d/c tomorrow after family meeting so she can share her safety plan with her and ensure smooth and safe transition home. Interval History Identifying Information 25 yo woman presenting with MDD and suicide attempt. Chief Complaint "I'm feeling good". Review of Systems Sleep Information Total Hours of Sleep: 7.75 Sleep Comments: pt on q-15 minute checks Meal Information Percent Meal Consumed - Breakfast: 100 Percent Meal Consumed - Lunch: 100 Percent Meal Consumed - Dinner: 100 Nutrition Comment: per meal record. Subjective Subjective Chart and events of last 24 hours reviewed and discussed with multidisciplinary treatment team including nursing and social work. No acute events reported overnight. Slept well. Eating well. Attending groups. Adherent with medications. They report stable mood and no reported side effects from their medication. Anxiety is rated as 2 (10=most severe) Depression is rated as 0 (10=most severe) Reviewing her safety plan today and agreeable to having a family meeting with social work and her in preparation for likely discharge tomorrow. Spent more than 20 minutes in the care and coordination of this patient of which greater than 50% was dedicated to counseling and coordination of care. Physical Exam Psychiatric Orientation: alert and oriented x 3 Apperance: appropriately dressed Eye Contact: + fair eye contact Motor Behavior: no abnormal motor movements Speech: normal rate/rhythm/volume of speech Affect: euthymic affect Mood: + anxious mood Thought Process: goal directed thought process Thought Content: reality based without delusions Suicidal Thoughts: denies suicidal thoughts Homicidal Thoughts: denies homicidal thoughts Hallucinations: no auditory hallucinations and no visual hallucinations Cognition: recent memory grossly intact Estimated Intelligence: average estimated intelligence Insight: + fair insight Judgement: good judgement Vital Signs (Past 24 Hours) Last Vital Signs Temp 36.3 C L 02/04/21 06:52 Pulse 102 H 02/04/21 06:53 Resp 18 02/04/21 06:52 BP 103/71 02/04/21 06:53 Results & Data ([facility]) Current Inpatient Medications Current Inpatient Medications: Current Inpatient Medications Acetaminophen (Acetaminophen 325 Mg Tab) 650 mg PO Q4H PRN PRN Reason: Headache or Minor Fever Stop: 02/27/21 12:22 Acetaminophen/Aspirin/Caffeine (Aspirin/Acetaminophen/Caffeine) 1 ea PO DAILY PRN; Protocol PRN Reason: Migraine Headache Stop: 02/27/21 18:54 Last Admin: 02/02/21 16:32 Dose: 1 ea Documented by: Al Hydrox/Mg Hydrox/Simethicone (Aluminum/Magnesium Susp 30 Ml Udc) 30 ml PO Q4H PRN PRN Reason: GI Upset Stop: 02/27/21 12:22 Aripiprazole (Aripiprazole 5 Mg Tab) 5 mg PO HS ERICA Stop: 03/04/21 21:59 Last Admin: 02/03/21 20:29 Dose: 5 mg Documented by: Bismuth Subsalicylate (Bismuth Subsalicylate Liqd 236 Ml) 15 ml PO PRN PRN PRN Reason: Loose Stool Stop: 02/27/21 12:22 Escitalopram Oxalate (Escitalopram Oxalate 20 Mg Tab) 20 mg PO QAM ERICA Stop: 03/01/21 08:59 Last Admin: 02/04/21 08:28 Dose: 20 mg Documented by: Hydroxyzine HCl (Hydroxyzine Hcl 25 Mg Tab) 50 mg PO HSZ PRN PRN Reason: Insomnia Stop: 02/27/21 12:22 Hydroxyzine HCl (Hydroxyzine Hcl 25 Mg Tab) 25 mg PO Q4H PRN PRN Reason: Anxiety Stop: 02/27/21 12:22 Lorazepam (Lorazepam 1 Mg Tab) 1 mg PO Q8 PRN PRN Reason: Anxiety Stop: 02/27/21 14:23 Last Admin: 01/30/21 12:52 Dose: 1 mg Documented by: Magnesium Hydroxide (Magnesium Hydroxide Susp 30 Ml Udc) 30 ml PO DAILY PRN PRN Reason: Constipation Stop: 02/27/21 12:22 Sodium Chloride (Sodium Chloride 0.65% Na Soln 45 Ml ([place])) 1 - 2 sprays NA PRN PRN PRN Reason: Nasal Dryness/Congestion Stop: 02/27/21 12:22 Mental Health & Subst Abuse Tx Psychiatrist Name of Psychiatrist: [facility] Therapist Name of Therapist: [facility] Date of Therapist Appointment: 02/14/21 Post Discharge Appointments Primary Care Physician Name Of Family Doctor: HELEN Polanco (will see a PA for first appointment) Primary Care Date of Appointment with PCP: 02/08/21 Time of Appointment with PCP: 3:30 PM Provider Appointment Comment: [address], [place] [address] Contact Information Discharge Discharge Address: [address], [address], [place] [address]
[2021-02-04] MEDS: ARIPiprazole 5 MG TAB PO SCH (20:24)
[2021-02-05] MEDS: ESCITALOPRAM OXALATE 20 MG TAB PO SCH (08:19)
--- NOTE | 2021-02-05 09:16 | Discharge Summary ---
Date of Service February 05, 2021 History of Present Illness HPI as per initial psychiatric consultation "HPI as per psychiatric liaison "Rounded on patient to complete initial assessment. Pt. sitting up in bed alert and oriented, affect flat. Answered questions appropriately. She reports that she has a history of depression, starting in high school. Past attempt was 2 years ago of OD with no inpatient mental health treatment. Denies any family history. She is prescribed medications through [facility], along with therapy through this site. She is prescribed Lexapro 20mg, and reports that she had taken an OD of an old script of Prozac and Lexapro. She estimates 1GM of medication was taken. She reports getting 2 weeks ago to her Aris who is her support system. She describes her stressors as "society" and how messed up the world is. She is currently employed at [email or web address]. Denies any Drug use, with occasional alcohol use. She did sign an PORSCHE for her . She currently has no PCP. " Upon evaluation, patient endorsed the above information is accurate. Stated that her depression goes back to her high school years, and she is to be consistently sought out help on [facility] for her depression. Patient unable to cite specific triggers or sources of her depression, just states life in general. When asked what her biggest stressor was patient said "waking up tomorrow" referring to the day following her overdose. Patient unable to cite any specific events or that they were's more stressful than others. Patient cites her menstrual period as main reason for mood dysregulation. She states that since having taken the overdose and having come to the hospital she feels much better, and is denying any current suicidal ideation. Patient denies any history of physical, sexual, emotional trauma. States that she had a good childhood growing up. States that she recently moved from [place] to [place] to be with her Aris. She was initially started on Prozac medication, but then discontinued due to feeling dizzy, then restarted on Lexapro medication with an increase the dosage. Patient states that she used her leftover prescriptions to overdose. She denies any drug use. Admits to occasional alcohol use but denies problematic drinking. She denies any psychotic, manic symptoms. Denies AVH, denies paranoia"" Patient has since been residing on the medical floors receiving serial EKGs. She was transferred over to psych when medically appropriate to do so. She continues to endorse the above information is accurate, adds that her anxiety plays a can significant role in her distress. However when asked about factors which contribute to her anxiety, patient gives a somewhat bizarre answer by stating she is upset with the way society is managed, and the role of government and society. Aside from this bizarre statement, patient denies any auditory hallucinations, paranoia, delusions. Physical Exam Psychiatric See admission H&P and DOD summary. Vital Signs (Past 24 Hours) Last Vital Signs Temp 36.7 C 02/05/21 06:59 Pulse 92 H 02/05/21 07:00 Resp 16 02/05/21 06:59 BP 94/60 L 02/05/21 07:00 Principal Diagnosis Major Depressive Disorder Psychiatric Data See daily stay summary. In short, patient was engaged with the social/therapeutic milieu of the unit, safety was maintained and the patient was cooperative with care. Medication changes included addition of abilify and sohail nuing lexapro and they tolerated this well. Baseline labs of fasting glucose, HbA1c, fasting lipid profile, and weight were preformed and WNL. Recommend repeat weight in one month. Recommend repeat fasting glucose, HbA1c and fasting lipid profile every 12 weeks and then annually. If symptoms arise recommend checking BP, EKG, prolactin level as clinically indicated or relevant. A family session was held and safety plan was completed and reviewed prior to discharge. Day of Discharge Assessment Today the patient voices readiness for discharge. They note improvement in mood and anxiety with no current symptoms of depression. They deny thoughts of harm to self or others. Thoughts remain organized and they are clinically improved from admission. There is no evidence of psychosis. They improved in the hospital with support and medication adjustments. They agree to take medications as prescribed and keep follow-up appointments. Acute risk of self-harm is low given no recent SI and no current depressive symptoms, and multiple protective factors including strong family support. At the time of the discharge they are deemed to be stable and appropriate for outpatient level of care. They are not deemed to be at imminent risk of harm to self or others. They are aware of emergency and crisis services. Knows to call 911 or go to nearest emergency care center if in a crisis which cannot be handled as an outpatient. Transition of Care Transition Of Care Record: was reviewed with the patient Advance Directives Advance Directives Information Provided: Yes Advance Directives: No Mental Health Advance Directive: No Advance Directives on File: No Living Will: No Power of Solar Business Developer: No Advance Directives Reason:: Declines as Mental Health Visit. Risk Factors Assessment : Yes Do You Have Access To A Gun?: No Health Problems: No Mental Health Diagnoses: Yes Substance Use Disorders: No Previous Attempt: No Family History of Suicide: No Previous Psychiatric Hospitalization: No Hopelessness: No Smoker: No Protective Factors Assessment : Yes Employed: Yes Stable Relationships: Yes Supportive Family: Yes Tobacco Cessation at Discharge Tobacco Cessation Medication Prescribed at Discharge: Not Applicable/Non-Smoker Total Time Total Time Spent: Greater Than 30 Minutes Total Time Includes: Examination of the patient, Discharge Planning, Medication Reconciliation and Communication with other providers Discharge Data Lab Results 02/02/21 02/02/21 08:51 08:51 WBC 7.83 RBC 4.36 Hgb 13.5 Hct 39.4 MCV 90.4 MCH 31.0 MCHC 34.3 RDW Std Deviation 41.4 RDW Coeff of Vandana 12.5 Plt Count 236 MPV 9.3 Sodium 137 Potassium 3.7 Chloride 105 Carbon Dioxide 28 Anion Gap 5.0 BUN 6 L Creatinine 0.54 L Est Cr Clr Drug Dosing 146.1 Est GFR ( Amer) > 150.0 Est GFR (Non-Af Amer) 132.1 BUN/Creatinine Ratio 11.9 Glucose 90 Calcium 8.8 Total Bilirubin 0.2 Direct Bilirubin < 0.1 AST 17 ALT 23 Alkaline Phosphatase 76 Total Protein 7.7 Albumin 3.7 Globulin 4.0 Albumin/Globulin Ratio 0.9 Triglycerides 68 Cholesterol 134 LDL Cholesterol, Calc 64 VLDL Cholesterol, Calc 14 HDL Cholesterol 56 Cholesterol/HDL Ratio 2 Hospital Course (1) Major depressive disorder with current active episode: The patient was admitted to the [facility] ([facility] mental [facility] unit) on every 15 minute checks (behavioral with suicide precautions for safety. The patient will participate in group, recreational, and milieu therapies and will be offered additional individual and family sessions as clinically appropriate. 01/28/2021atient ministered a one-time dose of Valium to milligrams. We will resume Lexapro medication tomorrow morning at 10 mg. Plan to augment with Abilify. 01/29/2021exapro will be increased to 20 mg p.o. every morning. 01/30/2021atient currently taking Lexapro 20 mg p.o. every morning. Occasionally utilizing Valium for anxiety. We will augment her regimen with Abilify 2.5 mg starting tomorrow morning. 01/31/2021atient continues to do well on the unit. Medications will stay at Lexapro 20 p.o. every morning, Abilify 2.5 p.o. nightly. 02/01/2021-- Will plan to increase Abilify dose to intended target dose of 5mg po qam starting tomorrow. Will continue on Lexapro 20mg po qam 02/02/2021exapro 20 mg p.o. every morning, Abilify 5 mg p.o. nightly. Patient making incremental progress. 02/03/2021--Completed insight-oriented reflection into factors leading to suicide attempt and is working on safety plan. Tolerating medications well-fasting glucose and fasting lipid panel normal. Discussed risks, benefits, alternatives in regard to her SSRI including potential for emergence of SI and need to seek emergent treatment and risks of abilify including tardive dyskinesia and metabolic side effects. Current AIMS score=0. 02/04/2021--Showing steady improvement. Plan for d/c tomorrow after family meeting so she can share her safety plan with her and ensure smooth and safe transition home. Mental Health & Subst Abuse Tx Psychiatrist Name of Psychiatrist: [facility] Therapist Name of Therapist: [facility] Date of Therapist Appointment: 02/14/21 Post Discharge Appointments Primary Care Physician Name Of Family Doctor: HELEN Polanco (will see a PA for first appointment) Primary Care Date of Appointment with PCP: 02/08/21 Time of Appointment with PCP: 3:30 PM Provider Appointment Comment: [address] [facility] [address], [place] [address] Smoking Cessation Counseling Tobacco Cessation Medication Prescribed at Discharge: Not Applicable/Non-Smoker Contact Information Discharge Discharge Address: [address], [place] [address] Discharge Plan Discharge Items Patient Disposition: Home - Self-Care Reason For Visit: MDD Discharge Diagnosis: Major Depressive Disorder Activity: Resume your previous activity Non-emergency contact: Primary Care Provider and Therapist Call non-emergency contact if: you have any medication questions and your symptoms worsen Follow-up/Referrals: PCP,NO [Primary Care Provider] - Diet: Regular Addtl Attending Provider Instructions: SPECIAL CARE INSTRUCTIONS: 1. Follow through with your scheduled aftercare appointments. If unable to keep an appointment, please call to reschedule. 2. Take your medication only as prescribed. Medication should not be changed or stopped without the approval of your doctor. In the event of worsening symptoms or concerns about side effects, contact your doctor immediately. 3. Utilize new healthy coping skills, anger management skills, and stress management skills learned during your hospitalization. Journal feelings and process them with a support person. Identify stressors or situations that may result in relapse, deterioration or inappropriate behaviors and develop a plan to deal with those issues. 4. If your coping skills are ineffective and you are in crisis, contact your outpatient providers for direction. If unable to reach your providers, please call the [facility] CRISIS LINE AT , go to the [facility] walk-in center at [address] [place] [address] A, [place], or go to the closest Emergency Room. 5. Avoid alcohol and un-prescribed drugs. 6. You have been provided with the Mental Health Advance Directives Pamphlet for your review. 7. Your condition is stable for discharge to outpatient level of care, but recovery is an ongoing process. Ifthoughts to harm yourself or others return, follow the safety plan developed during your stay. Planning for a safe return home includes securing weapons. Our treatment team recommends weaponsbe removed from the home until your outpatient provider reassesses your progress. In rare cases where the items themselvescannot be removed, guns and ammunitionshould be secured separatelyand keys stored by a reliable personoutside of the home. If you were admitted on an involuntary commitment, the police or other legal authorities may be involved in this process. AFTERCARE APPOINTMENTS: * Please call your insurance company prior to your scheduled appointment to confirm your aftercare providers are covered. Take your insurance information to your appointments. WHO TO CALL AND WHEN: Medical Emergencies: For questions or emergencies related to your hospital stay, please contact the Inpatient Behavioral Health Unit at [phone]. A customs brokerage agent is on-call 25/11 for the Behavioral Health Unit for emergencies At any time you feel your situation is an emergency, you may also call 911 immediately. Pending Studies at Discharge: No Stand-Alone Forms: My [facility] Medications and DC Order Prescriptions: New aripiprazole [Abilify] 5 mg Tablet 5 mg PO HS 30 Days Qty: 30 RF: 0 Continued escitalopram oxalate 20 mg Tablet 20 mg PO DAILY 30 Days Qty: 30 RF: 0 Discharge Orders: Discharge Order (Routine); Ordered 02/05/21 Ordered By: Jessica Garcia/Other Patient Handouts: Depression: Tips to Help Yourself Admission Data Admit Date/Time: 01/28/21 12:23 Attending Provider: Jessica Camilo Admit Provider: Amado Larsen Primary Care Provider: PCP,NO Other Providers: Amado Larsen Other Interventions: Discharge Summary Assessment (RN) Last Done: 02/05/21 10:30 PSY Interdisciplinary Discharge Planning Last Done: 02/05/21 10:44 Coding Level of Care Code 51456 D/C day mgmt > 30 min Diagnoses Major depressive disorder with current active episode F32.9
== END 2021-02-05 12:04 | disposition home or self-care (01) | DRG 881 ==
LOC: SUATTDRO 12:23 → 3S 12:23